=== PATIENT | male | born 1945 | race Caucasian/White ===

== ENCOUNTER 2018-05-27 13:57 | Inpatient (IN) | payer OTHER, SELFPAY ==
[2018-05-27] VITALS (11 sets, daily range): BP systolic 145–166; BP diastolic 60–90; PULSE 79–90; RESP 13–17; TEMP 36.5–39.2; O2SAT 93–100
--- NOTE | 2018-05-27 15:36 | DI.US.S_ITS ---
PROCEDURE: US ABDOMEN COMPLETE INDICATIONS: severe abdominal pain, fever, RUQ pain TECHNIQUE: Real-time scanning was performed of the abdominal and retroperitoneal organs, with image documentation. COMPARISON: None. FINDINGS: Liver: Markedly enlarged with multiple masses. There is a 6.4 cm hepatic cyst. Gallbladder: Surgically absent Biliary ducts: Obscured. Pancreas: Secured. Spleen: Spleen is normal in size and homogeneous in echotexture. Kidneys: The right kidney is normal in size and echotexture. Right kidney is partially seen and measures 13.5 cm long; left kidney is obscured. No hydronephrosis or nephrolithiasis. No solid masses. Aorta: Obscured. Iliacs: Obscured. IVC: Obscured. Miscellaneous: No free abdominal fluid. IMPRESSION: Innumerable hepatic masses consistent with metastasis. Findings would be amenable to percutaneous guided sampling. The majority of the remaining interrogated abdominal structures are obscured. Dictated by: Judson Lynch M.D. on 05/27/2018 at 17:06 Approved by: Judson Lynch M.D. on 05/27/2018 at 17:10
[2018-05-27 15:48] LABS: Add Manual Diff / Slide Review NO; Basophils Percent Auto 0.2 % (0-2); Eosinophils Percent Auto 0.1 % (2-4); Hematocrit 34.3 % (41-53); Hemoglobin 11.5 g/dL (13.5-17.5); Lymphocytes Percent Auto 9.3 % (25-40); Mean Corpuscular HGB Conc 33.4 % (30-36); Mean Corpuscular Volume 86.7 fL (80-100); Monocytes Percent Auto 7.3 % (3-14); Neutrophils Absolute Auto 6900 /uL (3000-5900); Neutrophils Percent Auto 83.1 % (50-75); Platelet Count 317 X10^3/uL (150-400); Red Blood Cell Count 3.96 X10^6/uL (4.5-5.9); Red Cell Distribution Width 15.2 % (11.6-14.8); White Blood Cell Count 8.3 X10^3/uL (4.5-11.0)
--- NOTE | 2018-05-27 15:51 | ED.ABDPAIN ---
HPI - Abdominal Pain <Cem Richard DO - Last Filed: 05/28/18 09:17> General Chief Complaint: Abdominal Pain Stated Complaint: achy all over,vomiting, sent by [facility] Time Seen by Provider: 05/27/18 15:36 Source: patient Mode of arrival: ambulatory Limitations: no limitations History of Present Illness HPI narrative: Patient presents to the emergency department today with a chief complaint feeling poorly for the past few weeks. He was sent here from his primary care office for evaluation. The patient has a history of prostate cancer and had prostatectomy in billing am in the spring. He states he has had ongoing back pain with a swollen belly and subjective fever and chills for the past few weeks. He denies any unplanned weight loss. He denies any change in bowel habits but has had nausea and vomiting. MD complaint: abdominal pain Onset (ago): week(s) Pain Consistency: constant Location: diffuse Severity: moderate Quality: cramping Radiation: none Migration to: no migration Relieving factors: nothing Exacerbating factors: nothing Associated symptoms: nausea, vomiting, fever and chills Related Data Home Medications Medication Instructions Recorded Confirmed acetaminophen [Tylenol] 1 dose PO PRN PRN 05/27/18 05/27/18 hydrocodone-acetaminophen 1 tab PO Q6H PRN MDD 8 05/27/18 05/27/18 ibuprofen 1 dose PO PRN PRN 05/27/18 05/27/18 ondansetron 4 mg PO Q8H PRN 05/27/18 05/27/18 Allergies Allergy/AdvReac Type Severity Reaction Status Date / Time No Known Drug Allergies Allergy Verified 05/27/18 15:32 Review of Systems <DO Trish Stiles Last Filed: 05/28/18 09:17> Review of Systems All systems reviewed & are unremarkable except as noted in HPI and below Constitutional Reports body ache(s), Reports chills, Reports fatigue, Reports fever(s), Denies lethargy, Reports poor appetite and Denies weakness Eyes Denies change in vision, Denies eye discharge, Denies irritation and Denies loss of vision ENT Ears, Nose, Mouth, and Throat: Denies change in voice, Denies neck pain and Denies sore throat Cardiovascular Denies chest pain, Denies irregular heart rhythm, Denies lightheadedness, Denies palpitations, Denies dyspnea, Denies dyspnea on exertion and Denies orthopnea Respiratory Denies cough, Denies dyspnea, Denies dyspnea on exertion and Denies wheezing Gastrointestinal Gastrointestinal: Reports abdominal pain, Denies change in bowel habits, Denies diarrhea, Denies nausea and Reports vomiting Genitourinary Denies hematuria, Denies flank pain, Denies urinary incontinence and Denies urinary urgency Musculoskeletal Reports back pain and Denies neck pain Integumentary/Breasts Denies pruritus, Denies erythema, Denies rash and Denies wounds Neurologic Denies confusion, Denies loss of vision and Denies weakness Psychiatric Denies anxiety, Denies confusion, Denies depression, Denies homicidal ideation and Denies suicidal ideation Endocrine Reports fatigue and Denies palpitations Hematologic/Lymphatic Denies easy bruising Allergic/Immunologic Denies wheezing Exam <Cem Richard, DO - Last Filed: 05/28/18 09:17> Narrative Exam Narrative: Pleasant 72-year-old male in mild distress Initial Vital Signs Initial Vital Signs: Vital Signs Temperature 97.7 F 05/27/18 14:00 Pulse Rate 90 05/27/18 14:00 Respiratory Rate 16 05/27/18 14:00 Blood Pressure 166/74 H 05/27/18 14:00 Pulse Oximetry 100 05/27/18 14:00 Const General: cooperative, well developed and in distress Nutritional Appearance: well nourished Orientation: alert, awake, oriented x3 and not confused [facility] Head: normocephalic and atraumatic Ears: external ears normal and TM's normal bilaterally Nose: external nose normal and No nasal discharge Face and sinus: sinuses nontender, face symmetric, no sinus tenderness and No dry mucous membranes Mouth: oral mucosae normal and moist mucous membranes Teeth and gingiva: dentition normal Throat: tonsils normal and uvula midline Eyes General: appearance normal, both eyes and all related structures Eyelids: eyelids normal Conjunctivae: conjunctivae normal Sclera: sclerae normal Pupils: PERRL EOM: EOM intact bilaterally Chest Chest: normal inspection of the chest Resp Effort & Inspection: normal respiratory effort, able to speak in complete sentences, no respiratory distress and no use of accessory muscles Auscultation: clear to auscultation bilaterally, no rales, no rhonchi and no wheezes GI Inspection: non-distended Palpation: soft, no hepatosplenomegaly, No guarding, No pulsatile mass, tender (Mild, diffuse) and ascites Auscultation: normal bowel sounds Back/Spine/Pelvis Back: No CVA tenderness Cervical Spine: cervical ROM normal and No pain with cervical ROM Thoracic/Lumbar Spine: thoracic and lumbar spine normal to inspection Other: Patient has generalized back pain in his lumbar region but no specific palpable bony point tenderness Skin General: no rashes or lesions noted, No jaundice and No petechiae Neuro General: alert, oriented x3, gait normal and no focal motor deficits Speech: speech normal <Alessio Palmer DO - Last Filed: 05/29/18 07:02> Initial Vital Signs Initial Vital Signs: Vital Signs Temperature 97.7 F 05/27/18 14:00 Pulse Rate 90 05/27/18 14:00 Respiratory Rate 16 05/27/18 14:00 Blood Pressure 166/74 H 05/27/18 14:00 Pulse Oximetry 100 05/27/18 14:00 Course <Cem Richard DO - Last Filed: 05/28/18 09:17> Orders Ordered: ED Orders 05/29/18 CT biopsy abdomen percutaneous Routine Docusate Sodium (Colace) 100 mg PO BID FRANKI Last Admin: 05/28/18 22:28 Dose: 100 mg Hydromorphone HCl (Dilaudid) 1 mg IV Q4H PRN PRN Reason: Pain, Severe (7-10) Last Admin: 05/29/18 05:30 Dose: 1 mg Non-Formulary Medication (Patient's Own Medication) 0 each PO PRN PRN PRN Reason: Agitation Oxycodone HCl (Percolone) 10 mg PO Q4HR PRN PRN Reason: Pain, Severe (7-10) Last Admin: 05/29/18 04:18 Dose: 10 mg Discontinued Medications Ceftriaxone Sodium (Rocephin) 1,000 mg IM NOW ONE Stop: 05/27/18 15:39 Last Admin: 05/27/18 16:06 Dose: Hydromorphone HCl (Dilaudid) 1 mg IV Q4H PRN PRN Reason: Pain, Severe (7-10) Sodium Chloride (Normal Saline 0.9%) 1,000 mls @ 1,000 mls/hr IV BOLUS ONE Stop: 05/27/18 16:47 Last Infusion: 05/27/18 17:25 Dose: 0 mls/hr Infusion: 05/27/18 16:55 Dose: 1,000 mls/hr Infusion: 05/27/18 16:40 Dose: 0 mls/hr Admin: 05/27/18 16:02 Dose: 1,000 mls/hr Ceftriaxone Sodium/Dextrose (Rocephin) 1 gm in 50 mls @ 100 mls/hr IV NOW ONE Stop: 05/27/18 16:34 Last Infusion: 05/27/18 16:33 Dose: 0 mls/hr Admin: 05/27/18 16:06 Dose: 100 mls/hr Sodium Chloride (Normal Saline 0.9%) 1,000 mls @ 1,000 mls/hr IV BOLUS ONE Stop: 05/27/18 18:23 Last Infusion: 05/27/18 18:50 Dose: 0 mls/hr Admin: 05/27/18 17:30 Dose: 1,000 mls/hr Sodium Chloride (Normal Saline 0.9%) 1,000 mls @ 100 mls/hr IV CONT FRANKI Last Infusion: 05/28/18 17:43 Dose: 0 mls/hr Infusion: 05/28/18 12:19 Dose: 100 mls/hr Admin: 05/28/18 06:41 Dose: 100 mls/hr Sodium Chloride (Normal Saline 0.9%) 1,000 mls @ 1,000 mls/hr IV BOLUS ONE Stop: 05/28/18 09:38 Last Infusion: 05/28/18 10:53 Dose: 0 mls/hr Admin: 05/28/18 09:19 Dose: 1,000 mls/hr Ibuprofen (Advil) 800 mg PO NOW ONE Stop: 05/28/18 06:28 Last Admin: 05/28/18 06:41 Dose: 800 mg Ketorolac Tromethamine (Toradol) 15 mg IV NOW ONE Stop: 05/27/18 15:49 Last Admin: 05/27/18 16:02 Dose: 15 mg Lorazepam (Ativan) 0.5 mg PO NOW ONE Stop: 05/28/18 01:10 Last Admin: 05/28/18 01:19 Dose: 0.5 mg Lorazepam (Ativan) 1 mg PO NOW ONE Stop: 05/28/18 06:19 Last Admin: 05/28/18 06:21 Dose: 1 mg Ondansetron HCl (Zofran) 4 mg IV NOW ONE Stop: 05/28/18 05:51 Last Admin: 05/28/18 06:02 Dose: 4 mg Oxycodone HCl (Oxycodone) 10 mg PO Q4HR PRN PRN Reason: Pain, Moderate (4-6) Oxycodone HCl (Percolone) 10 mg PO Q4HR PRN PRN Reason: Pain, Severe (7-10) Last Admin: 05/28/18 22:27 Dose: 10 mg Admin: 05/28/18 17:42 Dose: 10 mg Reevaluation(s) Reevaluation #1: Patient feeling febrile with chills, temperature re-checked and noted to be 102.5. Cultures and lactate ordered, Rocephin ordered, fluid bolus is ordered, goal of 30 milliliters/kilogram within 3 hr Time: 15:57 Reevaluation #2: temp has improved. Patient resting comfortably Reevaluation #3: Sats continue in the in mid 90s. Patient in no respiratory distress. Fever has improved. There is still no beds at [facility]. Re-contacted Dr. Reyes whom is happy to accept patient on her service Time: 09:17 Consultations Consultation #1: call to Dr. Talavera (Oncology) and review of findings. He states this sounds most likely to be from melanoma rather than prostate CA and that he has experience with impressive improvement under similar circumstances with the use of newer biologics. Call to our hospitalist to bring patient in whom recommends [facility] given access to oncology. Dr. Tavares (hospitalist) at [facility] happy to accept, but in the interim [facility] is full, but requests call back for status check in an hour. Dr. Reyes happy to accept patient on her service should bed availablity be a problem at [facility] Consultation #2: call back to [facility]. Currently no beds but they continue to work for us. They ask that we recheck at 2200 Time: 21:04 Vital Signs - 8 hr 05/29/18 01:01 05/29/18 02:08 05/29/18 04:18 Temperature 99.1 F 100.9 F H Pulse Rate 96 H Respiratory Rate 16 Blood Pressure 145/70 H Pulse Oximetry 94 94 05/29/18 04:26 05/29/18 04:28 05/29/18 05:41 Temperature 100.9 F H 100.9 F H Pulse Rate 92 H Respiratory Rate 22 Blood Pressure 158/73 H Pulse Oximetry 93 93 05/29/18 06:23 Temperature 100.4 F H Pulse Rate Respiratory Rate Blood Pressure Pulse Oximetry <Alessio Estela DO - Last Filed: 05/29/18 07:02> Orders Ordered: ED Orders 05/29/18 CT biopsy abdomen percutaneous Routine Docusate Sodium (Colace) 100 mg PO BID FRANKI Last Admin: 05/28/18 22:28 Dose: 100 mg Hydromorphone HCl (Dilaudid) 1 mg IV Q4H PRN PRN Reason: Pain, Severe (7-10) Last Admin: 05/29/18 05:30 Dose: 1 mg Non-Formulary Medication (Patient's Own Medication) 0 each PO PRN PRN PRN Reason: Agitation Oxycodone HCl (Percolone) 10 mg PO Q4HR PRN PRN Reason: Pain, Severe (7-10) Last Admin: 05/29/18 04:18 Dose: 10 mg Discontinued Medications Ceftriaxone Sodium (Rocephin) 1,000 mg IM NOW ONE Stop: 05/27/18 15:39 Last Admin: 05/27/18 16:06 Dose: Hydromorphone HCl (Dilaudid) 1 mg IV Q4H PRN PRN Reason: Pain, Severe (7-10) Sodium Chloride (Normal Saline 0.9%) 1,000 mls @ 1,000 mls/hr IV BOLUS ONE Stop: 05/27/18 16:47 Last Infusion: 05/27/18 17:25 Dose: 0 mls/hr Infusion: 05/27/18 16:55 Dose: 1,000 mls/hr Infusion: 05/27/18 16:40 Dose: 0 mls/hr Admin: 05/27/18 16:02 Dose: 1,000 mls/hr Ceftriaxone Sodium/Dextrose (Rocephin) 1 gm in 50 mls @ 100 mls/hr IV NOW ONE Stop: 05/27/18 16:34 Last Infusion: 05/27/18 16:33 Dose: 0 mls/hr Admin: 05/27/18 16:06 Dose: 100 mls/hr Sodium Chloride (Normal Saline 0.9%) 1,000 mls @ 1,000 mls/hr IV BOLUS ONE Stop: 05/27/18 18:23 Last Infusion: 05/27/18 18:50 Dose: 0 mls/hr Admin: 05/27/18 17:30 Dose: 1,000 mls/hr Sodium Chloride (Normal Saline 0.9%) 1,000 mls @ 100 mls/hr IV CONT FRANKI Last Infusion: 05/28/18 17:43 Dose: 0 mls/hr Infusion: 05/28/18 12:19 Dose: 100 mls/hr Admin: 05/28/18 06:41 Dose: 100 mls/hr Sodium Chloride (Normal Saline 0.9%) 1,000 mls @ 1,000 mls/hr IV BOLUS ONE Stop: 05/28/18 09:38 Last Infusion: 05/28/18 10:53 Dose: 0 mls/hr Admin: 05/28/18 09:19 Dose: 1,000 mls/hr Ibuprofen (Advil) 800 mg PO NOW ONE Stop: 05/28/18 06:28 Last Admin: 05/28/18 06:41 Dose: 800 mg Ketorolac Tromethamine (Toradol) 15 mg IV NOW ONE Stop: 05/27/18 15:49 Last Admin: 05/27/18 16:02 Dose: 15 mg Lorazepam (Ativan) 0.5 mg PO NOW ONE Stop: 05/28/18 01:10 Last Admin: 05/28/18 01:19 Dose: 0.5 mg Lorazepam (Ativan) 1 mg PO NOW ONE Stop: 05/28/18 06:19 Last Admin: 05/28/18 06:21 Dose: 1 mg Ondansetron HCl (Zofran) 4 mg IV NOW ONE Stop: 05/28/18 05:51 Last Admin: 05/28/18 06:02 Dose: 4 mg Oxycodone HCl (Oxycodone) 10 mg PO Q4HR PRN PRN Reason: Pain, Moderate (4-6) Oxycodone HCl (Percolone) 10 mg PO Q4HR PRN PRN Reason: Pain, Severe (7-10) Last Admin: 05/28/18 22:27 Dose: 10 mg Admin: 05/28/18 17:42 Dose: 10 mg Vital Signs - 8 hr 05/29/18 01:01 05/29/18 02:08 05/29/18 04:18 Temperature 99.1 F 100.9 F H Pulse Rate 96 H Respiratory Rate 16 Blood Pressure 145/70 H Pulse Oximetry 94 94 05/29/18 04:26 05/29/18 04:28 05/29/18 05:41 Temperature 100.9 F H 100.9 F H Pulse Rate 92 H Respiratory Rate 22 Blood Pressure 158/73 H Pulse Oximetry 93 93 05/29/18 06:23 Temperature 100.4 F H Pulse Rate Respiratory Rate Blood Pressure Pulse Oximetry MDM - Abdominal Pain <Cem Richrad DO - Last Filed: 05/28/18 09:17> Lab Data Result diagrams: 05/28/18 06:40 05/28/18 06:40 Lab Results 05/27/18 05/27/18 05/27/18 Range/Units 15:00 15:00 15:00 WBC 8.3 (4.5-11.0) X10^3/uL RBC 3.96 L (4.5-5.9) X10^6/uL Hgb 11.5 L (13.5-17.5) g/dL Hct 34.3 L (41-53) % MCV 86.7 (80-100) fL MCH 29.0 (26-34) PG MCHC 33.4 (30-36) % RDW 15.2 H (11.6-14.8) % Plt Count 317 (150-400) X10^3/uL Neut % (Auto) 83.1 H (50-75) % Lymph % (Auto) 9.3 L (25-40) % [place] % (Auto) 7.3 (3-14) % Eos % (Auto) 0.1 L (2-4) % Baso % (Auto) 0.2 (0-2) % Neut # (Auto) 6900 H (2862-5060) /uL PT (10.1-12.7) SECONDS INR (0.9-1.3) Sodium 138 (137-145) mmol/L Potassium 3.8 (3.4-5.1) mmol/L Chloride 97 L (98-107) mmol/L Carbon Dioxide 34 H (22-32) mmol/L BUN 15 (9-20) mg/dL Creatinine 0.70 (0.66-1.25) mg/dL Estimated GFR > 60.0 (>60) mL/min BUN/Creatinine Ratio 21.4 (6-22) Glucose 98 (80-110) mg/dL Lactate (0.7-2.1) mmol/L Calcium 9.8 (8.4-10.2) mg/dL Total Bilirubin 1.5 H (0.2-1.3) mg/dL Conjugated Bilirubin 0.0 (0.0-0.3) md/dL Unconjugated Bilirubin 0.8 (0.0-1.1) mg/dL AST 124 H (17-59) IU/L ALT 67 (21-72) IU/L Alkaline Phosphatase 488 H (38-126) U/L Lactate Dehydrogenase 8712 H (313-618) U/L Total Protein 6.3 (6.3-8.2) g/dL Albumin 3.4 L (3.5-5.0) g/dL Globulin 2.9 (1.7-4.1) g/dL Albumin/Globulin Ratio 1.2 (1.0-2.8) Lipase 35 (23-300) U/L Procalcitonin 0.34 (<0.5) ng/mL Urine Color Urine Appearance Urine pH (4.5-8.0) Ur Specific [place] (1.000-1.035) Urine Protein (Negative) Urine Glucose (UA) (Normal) g/dL Urine Ketones (NEGATIVE) Urine Occult Blood (Negative) Urine Nitrate (Negative) Urine Bilirubin (NEGATIVE) Urine Urobilinogen (0.2) E.U./dL Ur Leukocyte Esterase (NEGATIVE) Urine RBC (0-5/HPF) Urine WBC (0-5/HPF) Urine Bacteria (None) Ur Culture Indicated? Micro UA Comment Nasal Screen MRSA (PCR) (Negative) Acetaminophen < 10 L (10-30) ug/mL 05/27/18 05/28/18 05/28/18 Range/Units 15:00 06:40 06:40 WBC 8.1 (4.5-11.0) X10^3/uL RBC 3.51 L (4.5-5.9) X10^6/uL Hgb 10.2 L (13.5-17.5) g/dL Hct 30.3 L (41-53) % MCV 86.4 (80-100) fL MCH 29.1 (26-34) PG MCHC 33.7 (30-36) % RDW 15.0 H (11.6-14.8) % Plt Count 251 (150-400) X10^3/uL Neut % (Auto) 85.8 H (50-75) % Lymph % (Auto) 6.3 L (25-40) % [place] % (Auto) 7.2 (3-14) % Eos % (Auto) 0.0 L (2-4) % Baso % (Auto) 0.7 (0-2) % Neut # (Auto) 6900 H (7594-1361) /uL PT (10.1-12.7) SECONDS INR (0.9-1.3) Sodium 133 L (137-145) mmol/L Potassium 3.4 (3.4-5.1) mmol/L Chloride 98 (98-107) mmol/L Carbon Dioxide 29 (22-32) mmol/L BUN 14 (9-20) mg/dL Creatinine 0.50 L (0.66-1.25) mg/dL Estimated GFR > 60.0 (>60) mL/min BUN/Creatinine Ratio 28.0 H (6-22) Glucose 108 (80-110) mg/dL Lactate 1.8 (0.7-2.1) mmol/L Calcium 8.7 (8.4-10.2) mg/dL Total Bilirubin (0.2-1.3) mg/dL Conjugated Bilirubin (0.0-0.3) md/dL Unconjugated Bilirubin (0.0-1.1) mg/dL AST (17-59) IU/L ALT (21-72) IU/L Alkaline Phosphatase (38-126) U/L Lactate Dehydrogenase (313-618) U/L Total Protein (6.3-8.2) g/dL Albumin (3.5-5.0) g/dL Globulin (1.7-4.1) g/dL Albumin/Globulin Ratio (1.0-2.8) Lipase (23-300) U/L Procalcitonin (<0.5) ng/mL Urine Color Urine Appearance Urine pH (4.5-8.0) Ur Specific [place] (1.000-1.035) Urine Protein (Negative) Urine Glucose (UA) (Normal) g/dL Urine Ketones (NEGATIVE) Urine Occult Blood (Negative) Urine Nitrate (Negative) Urine Bilirubin (NEGATIVE) Urine Urobilinogen (0.2) E.U./dL Ur Leukocyte Esterase (NEGATIVE) Urine RBC (0-5/HPF) Urine WBC (0-5/HPF) Urine Bacteria (None) Ur Culture Indicated? Micro UA Comment Nasal Screen MRSA (PCR) (Negative) Acetaminophen (10-30) ug/mL 05/28/18 05/28/18 05/28/18 Range/Units 06:40 14:12 17:16 WBC (4.5-11.0) X10^3/uL RBC (4.5-5.9) X10^6/uL Hgb (13.5-17.5) g/dL Hct (41-53) % MCV (80-100) fL MCH (26-34) PG MCHC (30-36) % RDW (11.6-14.8) % Plt Count (150-400) X10^3/uL Neut % (Auto) (50-75) % Lymph % (Auto) (25-40) % [place] % (Auto) (3-14) % Eos % (Auto) (2-4) % Baso % (Auto) (0-2) % Neut # (Auto) (0232-9300) /uL PT 14.6 H (10.1-12.7) SECONDS INR 1.3 (0.9-1.3) Sodium (137-145) mmol/L Potassium (3.4-5.1) mmol/L Chloride (98-107) mmol/L Carbon Dioxide (22-32) mmol/L BUN (9-20) mg/dL Creatinine (0.66-1.25) mg/dL Estimated GFR (>60) mL/min BUN/Creatinine Ratio (6-22) Glucose (80-110) mg/dL Lactate 1.1 (0.7-2.1) mmol/L Calcium (8.4-10.2) mg/dL Total Bilirubin (0.2-1.3) mg/dL Conjugated Bilirubin (0.0-0.3) md/dL Unconjugated Bilirubin (0.0-1.1) mg/dL AST (17-59) IU/L ALT (21-72) IU/L Alkaline Phosphatase (38-126) U/L Lactate Dehydrogenase (313-618) U/L Total Protein (6.3-8.2) g/dL Albumin (3.5-5.0) g/dL Globulin (1.7-4.1) g/dL Albumin/Globulin Ratio (1.0-2.8) Lipase (23-300) U/L Procalcitonin (<0.5) ng/mL Urine Color Urine Appearance Urine pH (4.5-8.0) Ur Specific [place] (1.000-1.035) Urine Protein (Negative) Urine Glucose (UA) (Normal) g/dL Urine Ketones (NEGATIVE) Urine Occult Blood (Negative) Urine Nitrate (Negative) Urine Bilirubin (NEGATIVE) Urine Urobilinogen (0.2) E.U./dL Ur Leukocyte Esterase (NEGATIVE) Urine RBC (0-5/HPF) Urine WBC (0-5/HPF) Urine Bacteria (None) Ur Culture Indicated? Micro UA Comment Nasal Screen MRSA (PCR) Negative for mrsa (Negative) Acetaminophen (10-30) ug/mL 05/28/18 Range/Units 17:30 WBC (4.5-11.0) X10^3/uL RBC (4.5-5.9) X10^6/uL Hgb (13.5-17.5) g/dL Hct (41-53) % MCV (80-100) fL MCH (26-34) PG MCHC (30-36) % RDW (11.6-14.8) % Plt Count (150-400) X10^3/uL Neut % (Auto) (50-75) % Lymph % (Auto) (25-40) % [place] % (Auto) (3-14) % Eos % (Auto) (2-4) % Baso % (Auto) (0-2) % Neut # (Auto) (4271-3631) /uL PT (10.1-12.7) SECONDS INR (0.9-1.3) Sodium (137-145) mmol/L Potassium (3.4-5.1) mmol/L Chloride (98-107) mmol/L Carbon Dioxide (22-32) mmol/L BUN (9-20) mg/dL Creatinine (0.66-1.25) mg/dL Estimated GFR (>60) mL/min BUN/Creatinine Ratio (6-22) Glucose (80-110) mg/dL Lactate (0.7-2.1) mmol/L Calcium (8.4-10.2) mg/dL Total Bilirubin (0.2-1.3) mg/dL Conjugated Bilirubin (0.0-0.3) md/dL Unconjugated Bilirubin (0.0-1.1) mg/dL AST (17-59) IU/L ALT (21-72) IU/L Alkaline Phosphatase (38-126) U/L Lactate Dehydrogenase (313-618) U/L Total Protein (6.3-8.2) g/dL Albumin (3.5-5.0) g/dL Globulin (1.7-4.1) g/dL Albumin/Globulin Ratio (1.0-2.8) Lipase (23-300) U/L Procalcitonin (<0.5) ng/mL Urine Color Yellow Urine Appearance Clear Urine pH 5.5 (4.5-8.0) Ur Specific [place] 1.025 (1.000-1.035) Urine Protein 1+ H (Negative) Urine Glucose (UA) Negative (Normal) g/dL Urine Ketones Negative (NEGATIVE) Urine Occult Blood Negative (Negative) Urine Nitrate Negative (Negative) Urine Bilirubin Negative (NEGATIVE) Urine Urobilinogen 4.0 H (0.2) E.U./dL Ur Leukocyte Esterase Negative (NEGATIVE) Urine RBC 0-1/hpf (0-5/HPF) Urine WBC 0-1/hpf (0-5/HPF) Urine Bacteria None seen (None) Ur Culture Indicated? Not Reportable Micro UA Comment Not Reportable Nasal Screen MRSA (PCR) (Negative) Acetaminophen (10-30) ug/mL Point of care testing: Urine Dip Bedside Urine Glucose Negative Bedside Urine Bilirubin - Negative Bedside Urine Ketone - Negative Urine Specific [place] 1.020 Bedside Urine Occult Blood - Negative Bedside Urine pH 6.0 Bedside Urine Protein +/- 15 Bedside Urine Urobilinogen 1+ 2mg Bedside Urine Nitrite - Negative Bedside Urine Leukocytes - Negative Esterase <Alessio Palmer DO - Last Filed: 05/29/18 07:02> Lab Data Lab Results 05/27/18 05/27/18 05/27/18 Range/Units 15:00 15:00 15:00 WBC 8.3 (4.5-11.0) X10^3/uL RBC 3.96 L (4.5-5.9) X10^6/uL Hgb 11.5 L (13.5-17.5) g/dL Hct 34.3 L (41-53) % MCV 86.7 (80-100) fL MCH 29.0 (26-34) PG MCHC 33.4 (30-36) % RDW 15.2 H (11.6-14.8) % Plt Count 317 (150-400) X10^3/uL Neut % (Auto) 83.1 H (50-75) % Lymph % (Auto) 9.3 L (25-40) % [place] % (Auto) 7.3 (3-14) % Eos % (Auto) 0.1 L (2-4) % Baso % (Auto) 0.2 (0-2) % Neut # (Auto) 6900 H (1263-1569) /uL PT (10.1-12.7) SECONDS INR (0.9-1.3) Sodium 138 (137-145) mmol/L Potassium 3.8 (3.4-5.1) mmol/L Chloride 97 L (98-107) mmol/L Carbon Dioxide 34 H (22-32) mmol/L BUN 15 (9-20) mg/dL Creatinine 0.70 (0.66-1.25) mg/dL Estimated GFR > 60.0 (>60) mL/min BUN/Creatinine Ratio 21.4 (6-22) Glucose 98 (80-110) mg/dL Lactate (0.7-2.1) mmol/L Calcium 9.8 (8.4-10.2) mg/dL Total Bilirubin 1.5 H (0.2-1.3) mg/dL Conjugated Bilirubin 0.0 (0.0-0.3) md/dL Unconjugated Bilirubin 0.8 (0.0-1.1) mg/dL AST 124 H (17-59) IU/L ALT 67 (21-72) IU/L Alkaline Phosphatase 488 H (38-126) U/L Lactate Dehydrogenase 8712 H (313-618) U/L Total Protein 6.3 (6.3-8.2) g/dL Albumin 3.4 L (3.5-5.0) g/dL Globulin 2.9 (1.7-4.1) g/dL Albumin/Globulin Ratio 1.2 (1.0-2.8) Lipase 35 (23-300) U/L Procalcitonin 0.34 (<0.5) ng/mL Urine Color Urine Appearance Urine pH (4.5-8.0) Ur Specific [place] (1.000-1.035) Urine Protein (Negative) Urine Glucose (UA) (Normal) g/dL Urine Ketones (NEGATIVE) Urine Occult Blood (Negative) Urine Nitrate (Negative) Urine Bilirubin (NEGATIVE) Urine Urobilinogen (0.2) E.U./dL Ur Leukocyte Esterase (NEGATIVE) Urine RBC (0-5/HPF) Urine WBC (0-5/HPF) Urine Bacteria (None) Ur Culture Indicated? Micro UA Comment Nasal Screen MRSA (PCR) (Negative) Acetaminophen < 10 L (10-30) ug/mL 05/27/18 05/28/18 05/28/18 Range/Units 15:00 06:40 06:40 WBC 8.1 (4.5-11.0) X10^3/uL RBC 3.51 L (4.5-5.9) X10^6/uL Hgb 10.2 L (13.5-17.5) g/dL Hct 30.3 L (41-53) % MCV 86.4 (80-100) fL MCH 29.1 (26-34) PG MCHC 33.7 (30-36) % RDW 15.0 H (11.6-14.8) % Plt Count 251 (150-400) X10^3/uL Neut % (Auto) 85.8 H (50-75) % Lymph % (Auto) 6.3 L (25-40) % [place] % (Auto) 7.2 (3-14) % Eos % (Auto) 0.0 L (2-4) % Baso % (Auto) 0.7 (0-2) % Neut # (Auto) 6900 H (9633-7465) /uL PT (10.1-12.7) SECONDS INR (0.9-1.3) Sodium 133 L (137-145) mmol/L Potassium 3.4 (3.4-5.1) mmol/L Chloride 98 (98-107) mmol/L Carbon Dioxide 29 (22-32) mmol/L BUN 14 (9-20) mg/dL Creatinine 0.50 L (0.66-1.25) mg/dL Estimated GFR > 60.0 (>60) mL/min BUN/Creatinine Ratio 28.0 H (6-22) Glucose 108 (80-110) mg/dL Lactate 1.8 (0.7-2.1) mmol/L Calcium 8.7 (8.4-10.2) mg/dL Total Bilirubin (0.2-1.3) mg/dL Conjugated Bilirubin (0.0-0.3) md/dL Unconjugated Bilirubin (0.0-1.1) mg/dL AST (17-59) IU/L ALT (21-72) IU/L Alkaline Phosphatase (38-126) U/L Lactate Dehydrogenase (313-618) U/L Total Protein (6.3-8.2) g/dL Albumin (3.5-5.0) g/dL Globulin (1.7-4.1) g/dL Albumin/Globulin Ratio (1.0-2.8) Lipase (23-300) U/L Procalcitonin (<0.5) ng/mL Urine Color Urine Appearance Urine pH (4.5-8.0) Ur Specific [place] (1.000-1.035) Urine Protein (Negative) Urine Glucose (UA) (Normal) g/dL Urine Ketones (NEGATIVE) Urine Occult Blood (Negative) Urine Nitrate (Negative) Urine Bilirubin (NEGATIVE) Urine Urobilinogen (0.2) E.U./dL Ur Leukocyte Esterase (NEGATIVE) Urine RBC (0-5/HPF) Urine WBC (0-5/HPF) Urine Bacteria (None) Ur Culture Indicated? Micro UA Comment Nasal Screen MRSA (PCR) (Negative) Acetaminophen (10-30) ug/mL 05/28/18 05/28/18 05/28/18 Range/Units 06:40 14:12 17:16 WBC (4.5-11.0) X10^3/uL RBC (4.5-5.9) X10^6/uL Hgb (13.5-17.5) g/dL Hct (41-53) % MCV (80-100) fL MCH (26-34) PG MCHC (30-36) % RDW (11.6-14.8) % Plt Count (150-400) X10^3/uL Neut % (Auto) (50-75) % Lymph % (Auto) (25-40) % [place] % (Auto) (3-14) % Eos % (Auto) (2-4) % Baso % (Auto) (0-2) % Neut # (Auto) (2616-1909) /uL PT 14.6 H (10.1-12.7) SECONDS INR 1.3 (0.9-1.3) Sodium (137-145) mmol/L Potassium (3.4-5.1) mmol/L Chloride (98-107) mmol/L Carbon Dioxide (22-32) mmol/L BUN (9-20) mg/dL Creatinine (0.66-1.25) mg/dL Estimated GFR (>60) mL/min BUN/Creatinine Ratio (6-22) Glucose (80-110) mg/dL Lactate 1.1 (0.7-2.1) mmol/L Calcium (8.4-10.2) mg/dL Total Bilirubin (0.2-1.3) mg/dL Conjugated Bilirubin (0.0-0.3) md/dL Unconjugated Bilirubin (0.0-1.1) mg/dL AST (17-59) IU/L ALT (21-72) IU/L Alkaline Phosphatase (38-126) U/L Lactate Dehydrogenase (313-618) U/L Total Protein (6.3-8.2) g/dL Albumin (3.5-5.0) g/dL Globulin (1.7-4.1) g/dL Albumin/Globulin Ratio (1.0-2.8) Lipase (23-300) U/L Procalcitonin (<0.5) ng/mL Urine Color Urine Appearance Urine pH (4.5-8.0) Ur Specific [place] (1.000-1.035) Urine Protein (Negative) Urine Glucose (UA) (Normal) g/dL Urine Ketones (NEGATIVE) Urine Occult Blood (Negative) Urine Nitrate (Negative) Urine Bilirubin (NEGATIVE) Urine Urobilinogen (0.2) E.U./dL Ur Leukocyte Esterase (NEGATIVE) Urine RBC (0-5/HPF) Urine WBC (0-5/HPF) Urine Bacteria (None) Ur Culture Indicated? Micro UA Comment Nasal Screen MRSA (PCR) Negative for mrsa (Negative) Acetaminophen (10-30) ug/mL 05/28/18 Range/Units 17:30 WBC (4.5-11.0) X10^3/uL RBC (4.5-5.9) X10^6/uL Hgb (13.5-17.5) g/dL Hct (41-53) % MCV (80-100) fL MCH (26-34) PG MCHC (30-36) % RDW (11.6-14.8) % Plt Count (150-400) X10^3/uL Neut % (Auto) (50-75) % Lymph % (Auto) (25-40) % [place] % (Auto) (3-14) % Eos % (Auto) (2-4) % Baso % (Auto) (0-2) % Neut # (Auto) (6250-7874) /uL PT (10.1-12.7) SECONDS INR (0.9-1.3) Sodium (137-145) mmol/L Potassium (3.4-5.1) mmol/L Chloride (98-107) mmol/L Carbon Dioxide (22-32) mmol/L BUN (9-20) mg/dL Creatinine (0.66-1.25) mg/dL Estimated GFR (>60) mL/min BUN/Creatinine Ratio (6-22) Glucose (80-110) mg/dL Lactate (0.7-2.1) mmol/L Calcium (8.4-10.2) mg/dL Total Bilirubin (0.2-1.3) mg/dL Conjugated Bilirubin (0.0-0.3) md/dL Unconjugated Bilirubin (0.0-1.1) mg/dL AST (17-59) IU/L ALT (21-72) IU/L Alkaline Phosphatase (38-126) U/L Lactate Dehydrogenase (313-618) U/L Total Protein (6.3-8.2) g/dL Albumin (3.5-5.0) g/dL Globulin (1.7-4.1) g/dL Albumin/Globulin Ratio (1.0-2.8) Lipase (23-300) U/L Procalcitonin (<0.5) ng/mL Urine Color Yellow Urine Appearance Clear Urine pH 5.5 (4.5-8.0) Ur Specific [place] 1.025 (1.000-1.035) Urine Protein 1+ H (Negative) Urine Glucose (UA) Negative (Normal) g/dL Urine Ketones Negative (NEGATIVE) Urine Occult Blood Negative (Negative) Urine Nitrate Negative (Negative) Urine Bilirubin Negative (NEGATIVE) Urine Urobilinogen 4.0 H (0.2) E.U./dL Ur Leukocyte Esterase Negative (NEGATIVE) Urine RBC 0-1/hpf (0-5/HPF) Urine WBC 0-1/hpf (0-5/HPF) Urine Bacteria None seen (None) Ur Culture Indicated? Not Reportable Micro UA Comment Not Reportable Nasal Screen MRSA (PCR) (Negative) Acetaminophen (10-30) ug/mL Point of care testing: Urine Dip Bedside Urine Glucose Negative Bedside Urine Bilirubin - Negative Bedside Urine Ketone - Negative Urine Specific [place] 1.020 Bedside Urine Occult Blood - Negative Bedside Urine pH 6.0 Bedside Urine Protein +/- 15 Bedside Urine Urobilinogen 1+ 2mg Bedside Urine Nitrite - Negative Bedside Urine Leukocytes - Negative Esterase MDM Narrative Medical decision making narrative: 05/28/18: Received turned over from Dr. Richard in reviewed the patient's history and physical exam and lab reports. Patient has been stable overnight. He did receive 0.5 mg of p.o. Ativan last evening because of having problems sleeping. Multiple attempts to transfer the patient to [facility] overnight unsuccessful secondary to their bed status. We were told that there was a high possibility that they would have bed availability today. I felt that since little treatment would happen overnight that keeping the patient here in the emergency department and transferring in the morning would be a better option than admitting the patient to our hospital overnight and then doing a in patient to inpatient transfer. In the morning the patient got up to go to the bathroom. Upon returning to the bed nursing staff informed me that the patient was tachypneic and oxygen saturations were in the high 80s to low 90s on room air. I went in to evaluate the patient. He states that he did not feel short of breath. States that he felt at baseline. Was able to speak in complete sentences however did occasionally dropped to 88% on room air. He denies any chest pain. He was tachypneic. Patient stated that he became ?wore out ?while in the bathroom trying to change his diaper that he wears because of his prostate issues. He felt that his respiratory issues were because he was very fatigued from this process. Patient was also becoming more anxious about his situation. He was given another 1 mg of p.o. Ativan. He reported that the 0.5 mg that he received last evening had some affect but not when he expected. His respiratory status is definitely a change from last evening. Patient was sat up in bed. Will give him a chance to recover from walking to the bathroom and see if his tachypnea improved. It does not improve we will consider radiologic studies to evaluate him further. Patient with continued O2 sats in the high 80s. He was placed on oxygen by nasal cannula. Temperature was taken and patient was febrile. Also report from the provider's note from yesterday that the patient was also febrile yesterday. He did receive antibiotics. Repeat labs were drawn this morning. Repeat chest x-ray was ordered. Will re-evaluate after chest x-ray. Critical Care Time <Cem Richard, - Last Filed: 05/28/18 09:17> Critical Care Time: Yes Total Critical Care Time: 45 Attestation: The high probability of a clinically significant, sudden or life threatening deterioration of the [cardiovascular] system(s) required my full and direct attention, intervention and personal management. The aggregate critical care time was [45] minutes. This time is in addition to time spent performing reported procedures but includes the following: [x] Data Review and interpretation [x] Patient assessment and monitoring of vital signs [x] Documentation [x] Medication orders and management Discharge Plan Departure Patient Disposition: Admitted As Inpatient Clinical Impression: Metastatic cancer to liver, Metastatic bone cancer Discharge Date/Time: 05/28/18 12:32 Interventions: ED Discharge Assessment Last Done: 05/28/18 12:10 Admit Date/Time: 05/28/18 12:12 Admit Provider: Claudia Reyes
--- NOTE | 2018-05-27 15:55 | ED_ITS ---
HPI - Abdominal Pain <Cem Richard DO - Last Filed: 05/28/18 09:17> General Chief Complaint: Abdominal Pain Stated Complaint: achy all over,vomiting, sent by [facility] Time Seen by Provider: 05/27/18 15:36 Source: patient Mode of arrival: ambulatory Limitations: no limitations History of Present Illness HPI narrative: Patient presents to the emergency department today with a chief complaint feeling poorly for the past few weeks. He was sent here from his primary care office for evaluation. The patient has a history of prostate cancer and had prostatectomy in billing am in the spring. He states he has had ongoing back pain with a swollen belly and subjective fever and chills for the past few weeks. He denies any unplanned weight loss. He denies any change in bowel habits but has had nausea and vomiting. MD complaint: abdominal pain Onset (ago): week(s) Pain Consistency: constant Location: diffuse Severity: moderate Quality: cramping Radiation: none Migration to: no migration Relieving factors: nothing Exacerbating factors: nothing Associated symptoms: nausea, vomiting, fever and chills Related Data Home Medications Medication Instructions Recorded Confirmed acetaminophen [Tylenol] 1 dose PO PRN PRN 05/27/18 05/27/18 hydrocodone-acetaminophen 1 tab PO Q6H PRN MDD 8 05/27/18 05/27/18 ibuprofen 1 dose PO PRN PRN 05/27/18 05/27/18 ondansetron 4 mg PO Q8H PRN 05/27/18 05/27/18 Allergies Allergy/AdvReac Type Severity Reaction Status Date / Time No Known Drug Allergies Allergy Verified 05/27/18 15:32 Review of Systems <DO Trish Stiles Last Filed: 05/28/18 09:17> Review of Systems All systems reviewed & are unremarkable except as noted in HPI and below Constitutional Reports body ache(s), Reports chills, Reports fatigue, Reports fever(s), Denies lethargy, Reports poor appetite and Denies weakness Eyes Denies change in vision, Denies eye discharge, Denies irritation and Denies loss of vision ENT Ears, Nose, Mouth, and Throat: Denies change in voice, Denies neck pain and Denies sore throat Cardiovascular Denies chest pain, Denies irregular heart rhythm, Denies lightheadedness, Denies palpitations, Denies dyspnea, Denies dyspnea on exertion and Denies orthopnea Respiratory Denies cough, Denies dyspnea, Denies dyspnea on exertion and Denies wheezing Gastrointestinal Gastrointestinal: Reports abdominal pain, Denies change in bowel habits, Denies diarrhea, Denies nausea and Reports vomiting Genitourinary Denies hematuria, Denies flank pain, Denies urinary incontinence and Denies urinary urgency Musculoskeletal Reports back pain and Denies neck pain Integumentary/Breasts Denies pruritus, Denies erythema, Denies rash and Denies wounds Neurologic Denies confusion, Denies loss of vision and Denies weakness Psychiatric Denies anxiety, Denies confusion, Denies depression, Denies homicidal ideation and Denies suicidal ideation Endocrine Reports fatigue and Denies palpitations Hematologic/Lymphatic Denies easy bruising Allergic/Immunologic Denies wheezing Exam <Cem Richard, DO - Last Filed: 05/28/18 09:17> Narrative Exam Narrative: Pleasant 72-year-old male in mild distress Initial Vital Signs Initial Vital Signs: Vital Signs Temperature 97.7 F 05/27/18 14:00 Pulse Rate 90 05/27/18 14:00 Respiratory Rate 16 05/27/18 14:00 Blood Pressure 166/74 H 05/27/18 14:00 Pulse Oximetry 100 05/27/18 14:00 Const General: cooperative, well developed and in distress Nutritional Appearance: well nourished Orientation: alert, awake, oriented x3 and not confused [facility] Head: normocephalic and atraumatic Ears: external ears normal and TM's normal bilaterally Nose: external nose normal and No nasal discharge Face and sinus: sinuses nontender, face symmetric, no sinus tenderness and No dry mucous membranes Mouth: oral mucosae normal and moist mucous membranes Teeth and gingiva: dentition normal Throat: tonsils normal and uvula midline Eyes General: appearance normal, both eyes and all related structures Eyelids: eyelids normal Conjunctivae: conjunctivae normal Sclera: sclerae normal Pupils: PERRL EOM: EOM intact bilaterally Chest Chest: normal inspection of the chest Resp Effort & Inspection: normal respiratory effort, able to speak in complete sentences, no respiratory distress and no use of accessory muscles Auscultation: clear to auscultation bilaterally, no rales, no rhonchi and no wheezes GI Inspection: non-distended Palpation: soft, no hepatosplenomegaly, No guarding, No pulsatile mass, tender ( Mild, diffuse) and ascites Auscultation: normal bowel sounds Back/Spine/Pelvis Back: No CVA tenderness Cervical Spine: cervical ROM normal and No pain with cervical ROM Thoracic/Lumbar Spine: thoracic and lumbar spine normal to inspection Other: Patient has generalized back pain in his lumbar region but no specific palpable bony point tenderness Skin General: no rashes or lesions noted, No jaundice and No petechiae Neuro General: alert, oriented x3, gait normal and no focal motor deficits Speech: speech normal <Alessio Palmer DO - Last Filed: 05/29/18 07:02> Initial Vital Signs Initial Vital Signs: Vital Signs Temperature 97.7 F 05/27/18 14:00 Pulse Rate 90 05/27/18 14:00 Respiratory Rate 16 05/27/18 14:00 Blood Pressure 166/74 H 05/27/18 14:00 Pulse Oximetry 100 05/27/18 14:00 Course <Cem Richard DO - Last Filed: 05/28/18 09:17> Orders Ordered: ED Orders 05/29/18 CT biopsy abdomen percutaneous Routine Docusate Sodium (Colace) 100 mg PO BID FRANKI Last Admin: 05/28/18 22:28 Dose: 100 mg Hydromorphone HCl (Dilaudid) 1 mg IV Q4H PRN PRN Reason: Pain, Severe (7-10) Last Admin: 05/29/18 05:30 Dose: 1 mg Non-Formulary Medication (Patient's Own Medication) 0 each PO PRN PRN PRN Reason: Agitation Oxycodone HCl (Percolone) 10 mg PO Q4HR PRN PRN Reason: Pain, Severe (7-10) Last Admin: 05/29/18 04:18 Dose: 10 mg Discontinued Medications Ceftriaxone Sodium (Rocephin) 1,000 mg IM NOW ONE Stop: 05/27/18 15:39 Last Admin: 05/27/18 16:06 Dose: Hydromorphone HCl (Dilaudid) 1 mg IV Q4H PRN PRN Reason: Pain, Severe (7-10) Sodium Chloride (Normal Saline 0.9%) 1,000 mls @ 1,000 mls/hr IV BOLUS ONE Stop: 05/27/18 16:47 Last Infusion: 05/27/18 17:25 Dose: 0 mls/hr Infusion: 05/27/18 16:55 Dose: 1,000 mls/hr Infusion: 05/27/18 16:40 Dose: 0 mls/hr Admin: 05/27/18 16:02 Dose: 1,000 mls/hr Ceftriaxone Sodium/Dextrose (Rocephin) 1 gm in 50 mls @ 100 mls/hr IV NOW ONE Stop: 05/27/18 16:34 Last Infusion: 05/27/18 16:33 Dose: 0 mls/hr Admin: 05/27/18 16:06 Dose: 100 mls/hr Sodium Chloride (Normal Saline 0.9%) 1,000 mls @ 1,000 mls/hr IV BOLUS ONE Stop: 05/27/18 18:23 Last Infusion: 05/27/18 18:50 Dose: 0 mls/hr Admin: 05/27/18 17:30 Dose: 1,000 mls/hr Sodium Chloride (Normal Saline 0.9%) 1,000 mls @ 100 mls/hr IV CONT FRANKI Last Infusion: 05/28/18 17:43 Dose: 0 mls/hr Infusion: 05/28/18 12:19 Dose: 100 mls/hr Admin: 05/28/18 06:41 Dose: 100 mls/hr Sodium Chloride (Normal Saline 0.9%) 1,000 mls @ 1,000 mls/hr IV BOLUS ONE Stop: 05/28/18 09:38 Last Infusion: 05/28/18 10:53 Dose: 0 mls/hr Admin: 05/28/18 09:19 Dose: 1,000 mls/hr Ibuprofen (Advil) 800 mg PO NOW ONE Stop: 05/28/18 06:28 Last Admin: 05/28/18 06:41 Dose: 800 mg Ketorolac Tromethamine (Toradol) 15 mg IV NOW ONE Stop: 05/27/18 15:49 Last Admin: 05/27/18 16:02 Dose: 15 mg Lorazepam (Ativan) 0.5 mg PO NOW ONE Stop: 05/28/18 01:10 Last Admin: 05/28/18 01:19 Dose: 0.5 mg Lorazepam (Ativan) 1 mg PO NOW ONE Stop: 05/28/18 06:19 Last Admin: 05/28/18 06:21 Dose: 1 mg Ondansetron HCl (Zofran) 4 mg IV NOW ONE Stop: 05/28/18 05:51 Last Admin: 05/28/18 06:02 Dose: 4 mg Oxycodone HCl (Oxycodone) 10 mg PO Q4HR PRN PRN Reason: Pain, Moderate (4-6) Oxycodone HCl (Percolone) 10 mg PO Q4HR PRN PRN Reason: Pain, Severe (7-10) Last Admin: 05/28/18 22:27 Dose: 10 mg Admin: 05/28/18 17:42 Dose: 10 mg Reevaluation(s) Reevaluation #1: Patient feeling febrile with chills, temperature re-checked and noted to be 102.5. Cultures and lactate ordered, Rocephin ordered, fluid bolus is ordered, goal of 30 milliliters/kilogram within 3 hr Time: 15:57 Reevaluation #2: temp has improved. Patient resting comfortably Reevaluation #3: Sats continue in the in mid 90s. Patient in no respiratory distress. Fever has improved. There is still no beds at [facility]. Re-contacted Dr. Reyes whom is happy to accept patient on her service Time: 09:17 Consultations Consultation #1: call to Dr. Talavera (Oncology) and review of findings. He states this sounds most likely to be from melanoma rather than prostate CA and that he has experience with impressive improvement under similar circumstances with the use of newer biologics. Call to our hospitalist to bring patient in whom recommends [facility] given access to oncology. Dr. Tavares (hospitalist) at [facility] happy to accept, but in the interim [facility] is full, but requests call back for status check in an hour. Dr. Reyes happy to accept patient on her service should bed availablity be a problem at [facility] Consultation #2: call back to [facility]. Currently no beds but they continue to work for us. They ask that we recheck at 2200 Time: 21:04 Vital Signs - 8 hr 05/29/18 01:01 05/29/18 02:08 05/29/18 04:18 Temperature 99.1 F 100.9 F H Pulse Rate 96 H Respiratory Rate 16 Blood Pressure 145/70 H Pulse Oximetry 94 94 05/29/18 04:26 05/29/18 04:28 05/29/18 05:41 Temperature 100.9 F H 100.9 F H Pulse Rate 92 H Respiratory Rate 22 Blood Pressure 158/73 H Pulse Oximetry 93 93 05/29/18 06:23 Temperature 100.4 F H Pulse Rate Respiratory Rate Blood Pressure Pulse Oximetry <Alessio Estela DO - Last Filed: 05/29/18 07:02> Orders Ordered: ED Orders 05/29/18 CT biopsy abdomen percutaneous Routine Docusate Sodium (Colace) 100 mg PO BID FRANKI Last Admin: 05/28/18 22:28 Dose: 100 mg Hydromorphone HCl (Dilaudid) 1 mg IV Q4H PRN PRN Reason: Pain, Severe (7-10) Last Admin: 05/29/18 05:30 Dose: 1 mg Non-Formulary Medication (Patient's Own Medication) 0 each PO PRN PRN PRN Reason: Agitation Oxycodone HCl (Percolone) 10 mg PO Q4HR PRN PRN Reason: Pain, Severe (7-10) Last Admin: 05/29/18 04:18 Dose: 10 mg Discontinued Medications Ceftriaxone Sodium (Rocephin) 1,000 mg IM NOW ONE Stop: 05/27/18 15:39 Last Admin: 05/27/18 16:06 Dose: Hydromorphone HCl (Dilaudid) 1 mg IV Q4H PRN PRN Reason: Pain, Severe (7-10) Sodium Chloride (Normal Saline 0.9%) 1,000 mls @ 1,000 mls/hr IV BOLUS ONE Stop: 05/27/18 16:47 Last Infusion: 05/27/18 17:25 Dose: 0 mls/hr Infusion: 05/27/18 16:55 Dose: 1,000 mls/hr Infusion: 05/27/18 16:40 Dose: 0 mls/hr Admin: 05/27/18 16:02 Dose: 1,000 mls/hr Ceftriaxone Sodium/Dextrose (Rocephin) 1 gm in 50 mls @ 100 mls/hr IV NOW ONE Stop: 05/27/18 16:34 Last Infusion: 05/27/18 16:33 Dose: 0 mls/hr Admin: 05/27/18 16:06 Dose: 100 mls/hr Sodium Chloride (Normal Saline 0.9%) 1,000 mls @ 1,000 mls/hr IV BOLUS ONE Stop: 05/27/18 18:23 Last Infusion: 05/27/18 18:50 Dose: 0 mls/hr Admin: 05/27/18 17:30 Dose: 1,000 mls/hr Sodium Chloride (Normal Saline 0.9%) 1,000 mls @ 100 mls/hr IV CONT FRANKI Last Infusion: 05/28/18 17:43 Dose: 0 mls/hr Infusion: 05/28/18 12:19 Dose: 100 mls/hr Admin: 05/28/18 06:41 Dose: 100 mls/hr Sodium Chloride (Normal Saline 0.9%) 1,000 mls @ 1,000 mls/hr IV BOLUS ONE Stop: 05/28/18 09:38 Last Infusion: 05/28/18 10:53 Dose: 0 mls/hr Admin: 05/28/18 09:19 Dose: 1,000 mls/hr Ibuprofen (Advil) 800 mg PO NOW ONE Stop: 05/28/18 06:28 Last Admin: 05/28/18 06:41 Dose: 800 mg Ketorolac Tromethamine (Toradol) 15 mg IV NOW ONE Stop: 05/27/18 15:49 Last Admin: 05/27/18 16:02 Dose: 15 mg Lorazepam (Ativan) 0.5 mg PO NOW ONE Stop: 05/28/18 01:10 Last Admin: 05/28/18 01:19 Dose: 0.5 mg Lorazepam (Ativan) 1 mg PO NOW ONE Stop: 05/28/18 06:19 Last Admin: 05/28/18 06:21 Dose: 1 mg Ondansetron HCl (Zofran) 4 mg IV NOW ONE Stop: 05/28/18 05:51 Last Admin: 05/28/18 06:02 Dose: 4 mg Oxycodone HCl (Oxycodone) 10 mg PO Q4HR PRN PRN Reason: Pain, Moderate (4-6) Oxycodone HCl (Percolone) 10 mg PO Q4HR PRN PRN Reason: Pain, Severe (7-10) Last Admin: 05/28/18 22:27 Dose: 10 mg Admin: 05/28/18 17:42 Dose: 10 mg Vital Signs - 8 hr 05/29/18 01:01 05/29/18 02:08 05/29/18 04:18 Temperature 99.1 F 100.9 F H Pulse Rate 96 H Respiratory Rate 16 Blood Pressure 145/70 H Pulse Oximetry 94 94 05/29/18 04:26 05/29/18 04:28 05/29/18 05:41 Temperature 100.9 F H 100.9 F H Pulse Rate 92 H Respiratory Rate 22 Blood Pressure 158/73 H Pulse Oximetry 93 93 05/29/18 06:23 Temperature 100.4 F H Pulse Rate Respiratory Rate Blood Pressure Pulse Oximetry MDM - Abdominal Pain <Cem Richard DO - Last Filed: 05/28/18 09:17> Lab Data Result diagrams: 05/28/18 06:40 05/28/18 06:40 Lab Results 05/27/18 05/27/18 05/27/18 Range/Units 15:00 15:00 15:00 WBC 8.3 (4.5-11.0) X10^3/uL RBC 3.96 L (4.5-5.9) X10^6/uL Hgb 11.5 L (13.5-17.5) g/dL Hct 34.3 L (41-53) % MCV 86.7 (80-100) fL MCH 29.0 (26-34) PG MCHC 33.4 (30-36) % RDW 15.2 H (11.6-14.8) % Plt Count 317 (150-400) X10^3/uL Neut % (Auto) 83.1 H (50-75) % Lymph % (Auto) 9.3 L (25-40) % [place] % (Auto) 7.3 (3-14) % Eos % (Auto) 0.1 L (2-4) % Baso % (Auto) 0.2 (0-2) % Neut # (Auto) 6900 H (9823-7628) /uL PT (10.1-12.7) SECONDS INR (0.9-1.3) Sodium 138 (137-145) mmol/L Potassium 3.8 (3.4-5.1) mmol/L Chloride 97 L (98-107) mmol/L Carbon Dioxide 34 H (22-32) mmol/L BUN 15 (9-20) mg/dL Creatinine 0.70 (0.66-1.25) mg/dL Estimated GFR > 60.0 (>60) mL/min BUN/Creatinine Ratio 21.4 (6-22) Glucose 98 (80-110) mg/dL Lactate (0.7-2.1) mmol/L Calcium 9.8 (8.4-10.2) mg/dL Total Bilirubin 1.5 H (0.2-1.3) mg/dL Conjugated Bilirubin 0.0 (0.0-0.3) md/dL Unconjugated Bilirubin 0.8 (0.0-1.1) mg/dL AST 124 H (17-59) IU/L ALT 67 (21-72) IU/L Alkaline Phosphatase 488 H (38-126) U/L Lactate Dehydrogenase 8712 H (313-618) U/L Total Protein 6.3 (6.3-8.2) g/dL Albumin 3.4 L (3.5-5.0) g/dL Globulin 2.9 (1.7-4.1) g/dL Albumin/Globulin Ratio 1.2 (1.0-2.8) Lipase 35 (23-300) U/L Procalcitonin 0.34 (<0.5) ng/mL Urine Color Urine Appearance Urine pH (4.5-8.0) Ur Specific [place] (1.000-1.035) Urine Protein (Negative) Urine Glucose (UA) (Normal) g/dL Urine Ketones (NEGATIVE) Urine Occult Blood (Negative) Urine Nitrate (Negative) Urine Bilirubin (NEGATIVE) Urine Urobilinogen (0.2) E.U./dL Ur Leukocyte Esterase (NEGATIVE) Urine RBC (0-5/HPF) Urine WBC (0-5/HPF) Urine Bacteria (None) Ur Culture Indicated? Micro UA Comment Nasal Screen MRSA (PCR) (Negative) Acetaminophen < 10 L (10-30) ug/mL 05/27/18 05/28/18 05/28/18 Range/Units 15:00 06:40 06:40 WBC 8.1 (4.5-11.0) X10^3/uL RBC 3.51 L (4.5-5.9) X10^6/uL Hgb 10.2 L (13.5-17.5) g/dL Hct 30.3 L (41-53) % MCV 86.4 (80-100) fL MCH 29.1 (26-34) PG MCHC 33.7 (30-36) % RDW 15.0 H (11.6-14.8) % Plt Count 251 (150-400) X10^3/uL Neut % (Auto) 85.8 H (50-75) % Lymph % (Auto) 6.3 L (25-40) % [place] % (Auto) 7.2 (3-14) % Eos % (Auto) 0.0 L (2-4) % Baso % (Auto) 0.7 (0-2) % Neut # (Auto) 6900 H (9095-7142) /uL PT (10.1-12.7) SECONDS INR (0.9-1.3) Sodium 133 L (137-145) mmol/L Potassium 3.4 (3.4-5.1) mmol/L Chloride 98 (98-107) mmol/L Carbon Dioxide 29 (22-32) mmol/L BUN 14 (9-20) mg/dL Creatinine 0.50 L (0.66-1.25) mg/dL Estimated GFR > 60.0 (>60) mL/min BUN/Creatinine Ratio 28.0 H (6-22) Glucose 108 (80-110) mg/dL Lactate 1.8 (0.7-2.1) mmol/L Calcium 8.7 (8.4-10.2) mg/dL Total Bilirubin (0.2-1.3) mg/dL Conjugated Bilirubin (0.0-0.3) md/dL Unconjugated Bilirubin (0.0-1.1) mg/dL AST (17-59) IU/L ALT (21-72) IU/L Alkaline Phosphatase (38-126) U/L Lactate Dehydrogenase (313-618) U/L Total Protein (6.3-8.2) g/dL Albumin (3.5-5.0) g/dL Globulin (1.7-4.1) g/dL Albumin/Globulin Ratio (1.0-2.8) Lipase (23-300) U/L Procalcitonin (<0.5) ng/mL Urine Color Urine Appearance Urine pH (4.5-8.0) Ur Specific [place] (1.000-1.035) Urine Protein (Negative) Urine Glucose (UA) (Normal) g/dL Urine Ketones (NEGATIVE) Urine Occult Blood (Negative) Urine Nitrate (Negative) Urine Bilirubin (NEGATIVE) Urine Urobilinogen (0.2) E.U./dL Ur Leukocyte Esterase (NEGATIVE) Urine RBC (0-5/HPF) Urine WBC (0-5/HPF) Urine Bacteria (None) Ur Culture Indicated? Micro UA Comment Nasal Screen MRSA (PCR) (Negative) Acetaminophen (10-30) ug/mL 05/28/18 05/28/18 05/28/18 Range/Units 06:40 14:12 17:16 WBC (4.5-11.0) X10^3/uL RBC (4.5-5.9) X10^6/uL Hgb (13.5-17.5) g/dL Hct (41-53) % MCV (80-100) fL MCH (26-34) PG MCHC (30-36) % RDW (11.6-14.8) % Plt Count (150-400) X10^3/uL Neut % (Auto) (50-75) % Lymph % (Auto) (25-40) % [place] % (Auto) (3-14) % Eos % (Auto) (2-4) % Baso % (Auto) (0-2) % Neut # (Auto) (2483-5350) /uL PT 14.6 H (10.1-12.7) SECONDS INR 1.3 (0.9-1.3) Sodium (137-145) mmol/L Potassium (3.4-5.1) mmol/L Chloride (98-107) mmol/L Carbon Dioxide (22-32) mmol/L BUN (9-20) mg/dL Creatinine (0.66-1.25) mg/dL Estimated GFR (>60) mL/min BUN/Creatinine Ratio (6-22) Glucose (80-110) mg/dL Lactate 1.1 (0.7-2.1) mmol/L Calcium (8.4-10.2) mg/dL Total Bilirubin (0.2-1.3) mg/dL Conjugated Bilirubin (0.0-0.3) md/dL Unconjugated Bilirubin (0.0-1.1) mg/dL AST (17-59) IU/L ALT (21-72) IU/L Alkaline Phosphatase (38-126) U/L Lactate Dehydrogenase (313-618) U/L Total Protein (6.3-8.2) g/dL Albumin (3.5-5.0) g/dL Globulin (1.7-4.1) g/dL Albumin/Globulin Ratio (1.0-2.8) Lipase (23-300) U/L Procalcitonin (<0.5) ng/mL Urine Color Urine Appearance Urine pH (4.5-8.0) Ur Specific [place] (1.000-1.035) Urine Protein (Negative) Urine Glucose (UA) (Normal) g/dL Urine Ketones (NEGATIVE) Urine Occult Blood (Negative) Urine Nitrate (Negative) Urine Bilirubin (NEGATIVE) Urine Urobilinogen (0.2) E.U./dL Ur Leukocyte Esterase (NEGATIVE) Urine RBC (0-5/HPF) Urine WBC (0-5/HPF) Urine Bacteria (None) Ur Culture Indicated? Micro UA Comment Nasal Screen MRSA (PCR) Negative for mrsa (Negative) Acetaminophen (10-30) ug/mL 05/28/18 Range/Units 17:30 WBC (4.5-11.0) X10^3/uL RBC (4.5-5.9) X10^6/uL Hgb (13.5-17.5) g/dL Hct (41-53) % MCV (80-100) fL MCH (26-34) PG MCHC (30-36) % RDW (11.6-14.8) % Plt Count (150-400) X10^3/uL Neut % (Auto) (50-75) % Lymph % (Auto) (25-40) % [place] % (Auto) (3-14) % Eos % (Auto) (2-4) % Baso % (Auto) (0-2) % Neut # (Auto) (0667-0952) /uL PT (10.1-12.7) SECONDS INR (0.9-1.3) Sodium (137-145) mmol/L Potassium (3.4-5.1) mmol/L Chloride (98-107) mmol/L Carbon Dioxide (22-32) mmol/L BUN (9-20) mg/dL Creatinine (0.66-1.25) mg/dL Estimated GFR (>60) mL/min BUN/Creatinine Ratio (6-22) Glucose (80-110) mg/dL Lactate (0.7-2.1) mmol/L Calcium (8.4-10.2) mg/dL Total Bilirubin (0.2-1.3) mg/dL Conjugated Bilirubin (0.0-0.3) md/dL Unconjugated Bilirubin (0.0-1.1) mg/dL AST (17-59) IU/L ALT (21-72) IU/L Alkaline Phosphatase (38-126) U/L Lactate Dehydrogenase (313-618) U/L Total Protein (6.3-8.2) g/dL Albumin (3.5-5.0) g/dL Globulin (1.7-4.1) g/dL Albumin/Globulin Ratio (1.0-2.8) Lipase (23-300) U/L Procalcitonin (<0.5) ng/mL Urine Color Yellow Urine Appearance Clear Urine pH 5.5 (4.5-8.0) Ur Specific [place] 1.025 (1.000-1.035) Urine Protein 1+ H (Negative) Urine Glucose (UA) Negative (Normal) g/dL Urine Ketones Negative (NEGATIVE) Urine Occult Blood Negative (Negative) Urine Nitrate Negative (Negative) Urine Bilirubin Negative (NEGATIVE) Urine Urobilinogen 4.0 H (0.2) E.U./dL Ur Leukocyte Esterase Negative (NEGATIVE) Urine RBC 0-1/hpf (0-5/HPF) Urine WBC 0-1/hpf (0-5/HPF) Urine Bacteria None seen (None) Ur Culture Indicated? Not Reportable Micro UA Comment Not Reportable Nasal Screen MRSA (PCR) (Negative) Acetaminophen (10-30) ug/mL Point of care testing: Urine Dip Bedside Urine Glucose Negative Bedside Urine Bilirubin - Negative Bedside Urine Ketone - Negative Urine Specific [place] 1.020 Bedside Urine Occult Blood - Negative Bedside Urine pH 6.0 Bedside Urine Protein +/- 15 Bedside Urine Urobilinogen 1+ 2mg Bedside Urine Nitrite - Negative Bedside Urine Leukocytes - Negative Esterase <Alessio Palmer DO - Last Filed: 05/29/18 07:02> Lab Data Lab Results 05/27/18 05/27/18 05/27/18 Range/Units 15:00 15:00 15:00 WBC 8.3 (4.5-11.0) X10^3/uL RBC 3.96 L (4.5-5.9) X10^6/uL Hgb 11.5 L (13.5-17.5) g/dL Hct 34.3 L (41-53) % MCV 86.7 (80-100) fL MCH 29.0 (26-34) PG MCHC 33.4 (30-36) % RDW 15.2 H (11.6-14.8) % Plt Count 317 (150-400) X10^3/uL Neut % (Auto) 83.1 H (50-75) % Lymph % (Auto) 9.3 L (25-40) % [place] % (Auto) 7.3 (3-14) % Eos % (Auto) 0.1 L (2-4) % Baso % (Auto) 0.2 (0-2) % Neut # (Auto) 6900 H (1120-1104) /uL PT (10.1-12.7) SECONDS INR (0.9-1.3) Sodium 138 (137-145) mmol/L Potassium 3.8 (3.4-5.1) mmol/L Chloride 97 L (98-107) mmol/L Carbon Dioxide 34 H (22-32) mmol/L BUN 15 (9-20) mg/dL Creatinine 0.70 (0.66-1.25) mg/dL Estimated GFR > 60.0 (>60) mL/min BUN/Creatinine Ratio 21.4 (6-22) Glucose 98 (80-110) mg/dL Lactate (0.7-2.1) mmol/L Calcium 9.8 (8.4-10.2) mg/dL Total Bilirubin 1.5 H (0.2-1.3) mg/dL Conjugated Bilirubin 0.0 (0.0-0.3) md/dL Unconjugated Bilirubin 0.8 (0.0-1.1) mg/dL AST 124 H (17-59) IU/L ALT 67 (21-72) IU/L Alkaline Phosphatase 488 H (38-126) U/L Lactate Dehydrogenase 8712 H (313-618) U/L Total Protein 6.3 (6.3-8.2) g/dL Albumin 3.4 L (3.5-5.0) g/dL Globulin 2.9 (1.7-4.1) g/dL Albumin/Globulin Ratio 1.2 (1.0-2.8) Lipase 35 (23-300) U/L Procalcitonin 0.34 (<0.5) ng/mL Urine Color Urine Appearance Urine pH (4.5-8.0) Ur Specific [place] (1.000-1.035) Urine Protein (Negative) Urine Glucose (UA) (Normal) g/dL Urine Ketones (NEGATIVE) Urine Occult Blood (Negative) Urine Nitrate (Negative) Urine Bilirubin (NEGATIVE) Urine Urobilinogen (0.2) E.U./dL Ur Leukocyte Esterase (NEGATIVE) Urine RBC (0-5/HPF) Urine WBC (0-5/HPF) Urine Bacteria (None) Ur Culture Indicated? Micro UA Comment Nasal Screen MRSA (PCR) (Negative) Acetaminophen < 10 L (10-30) ug/mL 05/27/18 05/28/18 05/28/18 Range/Units 15:00 06:40 06:40 WBC 8.1 (4.5-11.0) X10^3/uL RBC 3.51 L (4.5-5.9) X10^6/uL Hgb 10.2 L (13.5-17.5) g/dL Hct 30.3 L (41-53) % MCV 86.4 (80-100) fL MCH 29.1 (26-34) PG MCHC 33.7 (30-36) % RDW 15.0 H (11.6-14.8) % Plt Count 251 (150-400) X10^3/uL Neut % (Auto) 85.8 H (50-75) % Lymph % (Auto) 6.3 L (25-40) % [place] % (Auto) 7.2 (3-14) % Eos % (Auto) 0.0 L (2-4) % Baso % (Auto) 0.7 (0-2) % Neut # (Auto) 6900 H (3732-0090) /uL PT (10.1-12.7) SECONDS INR (0.9-1.3) Sodium 133 L (137-145) mmol/L Potassium 3.4 (3.4-5.1) mmol/L Chloride 98 (98-107) mmol/L Carbon Dioxide 29 (22-32) mmol/L BUN 14 (9-20) mg/dL Creatinine 0.50 L (0.66-1.25) mg/dL Estimated GFR > 60.0 (>60) mL/min BUN/Creatinine Ratio 28.0 H (6-22) Glucose 108 (80-110) mg/dL Lactate 1.8 (0.7-2.1) mmol/L Calcium 8.7 (8.4-10.2) mg/dL Total Bilirubin (0.2-1.3) mg/dL Conjugated Bilirubin (0.0-0.3) md/dL Unconjugated Bilirubin (0.0-1.1) mg/dL AST (17-59) IU/L ALT (21-72) IU/L Alkaline Phosphatase (38-126) U/L Lactate Dehydrogenase (313-618) U/L Total Protein (6.3-8.2) g/dL Albumin (3.5-5.0) g/dL Globulin (1.7-4.1) g/dL Albumin/Globulin Ratio (1.0-2.8) Lipase (23-300) U/L Procalcitonin (<0.5) ng/mL Urine Color Urine Appearance Urine pH (4.5-8.0) Ur Specific [place] (1.000-1.035) Urine Protein (Negative) Urine Glucose (UA) (Normal) g/dL Urine Ketones (NEGATIVE) Urine Occult Blood (Negative) Urine Nitrate (Negative) Urine Bilirubin (NEGATIVE) Urine Urobilinogen (0.2) E.U./dL Ur Leukocyte Esterase (NEGATIVE) Urine RBC (0-5/HPF) Urine WBC (0-5/HPF) Urine Bacteria (None) Ur Culture Indicated? Micro UA Comment Nasal Screen MRSA (PCR) (Negative) Acetaminophen (10-30) ug/mL 05/28/18 05/28/18 05/28/18 Range/Units 06:40 14:12 17:16 WBC (4.5-11.0) X10^3/uL RBC (4.5-5.9) X10^6/uL Hgb (13.5-17.5) g/dL Hct (41-53) % MCV (80-100) fL MCH (26-34) PG MCHC (30-36) % RDW (11.6-14.8) % Plt Count (150-400) X10^3/uL Neut % (Auto) (50-75) % Lymph % (Auto) (25-40) % [place] % (Auto) (3-14) % Eos % (Auto) (2-4) % Baso % (Auto) (0-2) % Neut # (Auto) (7931-5194) /uL PT 14.6 H (10.1-12.7) SECONDS INR 1.3 (0.9-1.3) Sodium (137-145) mmol/L Potassium (3.4-5.1) mmol/L Chloride (98-107) mmol/L Carbon Dioxide (22-32) mmol/L BUN (9-20) mg/dL Creatinine (0.66-1.25) mg/dL Estimated GFR (>60) mL/min BUN/Creatinine Ratio (6-22) Glucose (80-110) mg/dL Lactate 1.1 (0.7-2.1) mmol/L Calcium (8.4-10.2) mg/dL Total Bilirubin (0.2-1.3) mg/dL Conjugated Bilirubin (0.0-0.3) md/dL Unconjugated Bilirubin (0.0-1.1) mg/dL AST (17-59) IU/L ALT (21-72) IU/L Alkaline Phosphatase (38-126) U/L Lactate Dehydrogenase (313-618) U/L Total Protein (6.3-8.2) g/dL Albumin (3.5-5.0) g/dL Globulin (1.7-4.1) g/dL Albumin/Globulin Ratio (1.0-2.8) Lipase (23-300) U/L Procalcitonin (<0.5) ng/mL Urine Color Urine Appearance Urine pH (4.5-8.0) Ur Specific [place] (1.000-1.035) Urine Protein (Negative) Urine Glucose (UA) (Normal) g/dL Urine Ketones (NEGATIVE) Urine Occult Blood (Negative) Urine Nitrate (Negative) Urine Bilirubin (NEGATIVE) Urine Urobilinogen (0.2) E.U./dL Ur Leukocyte Esterase (NEGATIVE) Urine RBC (0-5/HPF) Urine WBC (0-5/HPF) Urine Bacteria (None) Ur Culture Indicated? Micro UA Comment Nasal Screen MRSA (PCR) Negative for mrsa (Negative) Acetaminophen (10-30) ug/mL 05/28/18 Range/Units 17:30 WBC (4.5-11.0) X10^3/uL RBC (4.5-5.9) X10^6/uL Hgb (13.5-17.5) g/dL Hct (41-53) % MCV (80-100) fL MCH (26-34) PG MCHC (30-36) % RDW (11.6-14.8) % Plt Count (150-400) X10^3/uL Neut % (Auto) (50-75) % Lymph % (Auto) (25-40) % [place] % (Auto) (3-14) % Eos % (Auto) (2-4) % Baso % (Auto) (0-2) % Neut # (Auto) (3581-9267) /uL PT (10.1-12.7) SECONDS INR (0.9-1.3) Sodium (137-145) mmol/L Potassium (3.4-5.1) mmol/L Chloride (98-107) mmol/L Carbon Dioxide (22-32) mmol/L BUN (9-20) mg/dL Creatinine (0.66-1.25) mg/dL Estimated GFR (>60) mL/min BUN/Creatinine Ratio (6-22) Glucose (80-110) mg/dL Lactate (0.7-2.1) mmol/L Calcium (8.4-10.2) mg/dL Total Bilirubin (0.2-1.3) mg/dL Conjugated Bilirubin (0.0-0.3) md/dL Unconjugated Bilirubin (0.0-1.1) mg/dL AST (17-59) IU/L ALT (21-72) IU/L Alkaline Phosphatase (38-126) U/L Lactate Dehydrogenase (313-618) U/L Total Protein (6.3-8.2) g/dL Albumin (3.5-5.0) g/dL Globulin (1.7-4.1) g/dL Albumin/Globulin Ratio (1.0-2.8) Lipase (23-300) U/L Procalcitonin (<0.5) ng/mL Urine Color Yellow Urine Appearance Clear Urine pH 5.5 (4.5-8.0) Ur Specific [place] 1.025 (1.000-1.035) Urine Protein 1+ H (Negative) Urine Glucose (UA) Negative (Normal) g/dL Urine Ketones Negative (NEGATIVE) Urine Occult Blood Negative (Negative) Urine Nitrate Negative (Negative) Urine Bilirubin Negative (NEGATIVE) Urine Urobilinogen 4.0 H (0.2) E.U./dL Ur Leukocyte Esterase Negative (NEGATIVE) Urine RBC 0-1/hpf (0-5/HPF) Urine WBC 0-1/hpf (0-5/HPF) Urine Bacteria None seen (None) Ur Culture Indicated? Not Reportable Micro UA Comment Not Reportable Nasal Screen MRSA (PCR) (Negative) Acetaminophen (10-30) ug/mL Point of care testing: Urine Dip Bedside Urine Glucose Negative Bedside Urine Bilirubin - Negative Bedside Urine Ketone - Negative Urine Specific [place] 1.020 Bedside Urine Occult Blood - Negative Bedside Urine pH 6.0 Bedside Urine Protein +/- 15 Bedside Urine Urobilinogen 1+ 2mg Bedside Urine Nitrite - Negative Bedside Urine Leukocytes - Negative Esterase MDM Narrative Medical decision making narrative: 05/28/18: Received turned over from Dr. Richard in reviewed the patient's history and physical exam and lab reports. Patient has been stable overnight. He did receive 0.5 mg of p.o. Ativan last evening because of having problems sleeping. Multiple attempts to transfer the patient to [facility] overnight unsuccessful secondary to their bed status. We were told that there was a high possibility that they would have bed availability today. I felt that since little treatment would happen overnight that keeping the patient here in the emergency department and transferring in the morning would be a better option than admitting the patient to our hospital overnight and then doing a in patient to inpatient transfer. In the morning the patient got up to go to the bathroom. Upon returning to the bed nursing staff informed me that the patient was tachypneic and oxygen saturations were in the high 80s to low 90s on room air. I went in to evaluate the patient. He states that he did not feel short of breath. States that he felt at baseline. Was able to speak in complete sentences however did occasionally dropped to 88% on room air. He denies any chest pain. He was tachypneic. Patient stated that he became ?wore out ?while in the bathroom trying to change his diaper that he wears because of his prostate issues. He felt that his respiratory issues were because he was very fatigued from this process. Patient was also becoming more anxious about his situation. He was given another 1 mg of p.o. Ativan. He reported that the 0.5 mg that he received last evening had some affect but not when he expected. His respiratory status is definitely a change from last evening. Patient was sat up in bed. Will give him a chance to recover from walking to the bathroom and see if his tachypnea improved. It does not improve we will consider radiologic studies to evaluate him further. Patient with continued O2 sats in the high 80s. He was placed on oxygen by nasal cannula. Temperature was taken and patient was febrile. Also report from the provider's note from yesterday that the patient was also febrile yesterday. He did receive antibiotics. Repeat labs were drawn this morning. Repeat chest x-ray was ordered. Will re-evaluate after chest x-ray. Critical Care Time <Cem Richard, - Last Filed: 05/28/18 09:17> Critical Care Time: Yes Total Critical Care Time: 45 Attestation: The high probability of a clinically significant, sudden or life threatening deterioration of the [cardiovascular] system(s) required my full and direct attention, intervention and personal management. The aggregate critical care time was [45] minutes. This time is in addition to time spent performing reported procedures but includes the following: [x] Data Review and interpretation [x] Patient assessment and monitoring of vital signs [x] Documentation [x] Medication orders and management Discharge Plan Departure Patient Disposition: Admitted As Inpatient Clinical Impression: Metastatic cancer to liver, Metastatic bone cancer Discharge Date/Time: 05/28/18 12:32 Interventions: ED Discharge Assessment Last Done: 05/28/18 12:10 Admit Date/Time: 05/28/18 12:12 Admit Provider: Claudia Reyes
[2018-05-27 15:56] LABS: Lactate (Lactic Acid) 1.8 mmol/L (0.7-2.1)
[2018-05-27 15:58] LABS: Acetaminophen < 10 ug/mL (10-30); Alanine Aminotransferase 67 IU/L (21-72); Albumin 3.4 g/dL (3.5-5.0); Albumin Globulin Ratio 1.2 (1.0-2.8); Alkaline Phosphatase 488 U/L (38-126); Aspartate Aminotransferase 124 IU/L (17-59); BUN Creatinine Ratio 21.4 (6-22); Bilirubin Total 1.5 mg/dL (0.2-1.3); Bilirubin Unconjugated 0.8 mg/dL (0.0-1.1); Blood Urea Nitrogen 15 mg/dL (9-20); Calcium 9.8 mg/dL (8.4-10.2); Carbon Dioxide 34 mmol/L (22-32); Chloride 97 mmol/L (98-107); Estimated Glomerular Filt Rate > 60.0 mL/min (>60); Globulin 2.9 g/dL (1.7-4.1); Glucose 98 mg/dL (80-110); HEMOLYSIS < 15 (0-50); Lipase 35 U/L (23-300); Potassium 3.8 mmol/L (3.4-5.1); Sodium 138 mmol/L (137-145); Total Protein 6.3 g/dL (6.3-8.2)
[2018-05-27] MEDS: KETOROLAC 15 MG/ML VIAL IV (16:02)
[2018-05-27] MEDS: SODIUM CHLORIDE 0.9% 1,000 ML 1000 ML IV ×2 (16:02→17:30)
[2018-05-27] MEDS: CEFTRIAXONE 1 GM/50 ML FROZ.PIGGY IV (16:06)
[2018-05-27 16:15] LABS: Procalcitonin 0.34 ng/mL (<0.5)
--- NOTE | 2018-05-27 16:24 | DI.CT.S_ITS ---
PROCEDURE: CT CHEST ABD PEL W CON INDICATIONS: severe abdominal pain, fever, high suspicion of CA TECHNIQUE: After the administration of oral and intravenous contrast, 5 mm thick sections acquired from the lung apices to the symphysis. 5 mm coronal and sagittal reformats were performed, with additional 7 mm coronal MIP reformats through the lungs. For radiation dose reduction, the following was used: automated exposure control, adjustment of mA and/or kV according to patient size. COMPARISON: [facility], US, US ABDOMEN COMPLETE, 05/27/2018, 16:18. FINDINGS: Image quality: Excellent. CHEST: Lungs and pleura: There is mild dependent atelectasis bilaterally. Mild subpleural scarring is also demonstrated medially in the right lower lobe. No discrete nodules or mass lesions. No pleural effusions or pneumothorax. Central and peripheral airways appear patent and normal in caliber. Mediastinum: Heart size is normal. No pericardial effusion. There is aneurysmal dilatation of the ascending thoracic aorta which measures up to 5.3 cm. The aortic arch and descending aorta are normal in caliber. No mediastinal or hilar adenopathy by size criteria. Esophagus is normal in caliber. No hiatal hernia. There is an enlarged paraesophageal lymph node at the gastroesophageal junction measuring up to 2.0 cm. Chest wall: No axillary or supraclavicular adenopathy by size criteria. Thyroid gland demonstrates mild heterogeneity of the right lobe. ABDOMEN: Solid organs: Multiple hypoattenuating masses are demonstrated throughout the liver involving all lobes. A parts counter representative mass in the lateral right lobe measures approximately 9.8 x 8.1 cm in transverse dimension, parts counter representative mass anteriorly in the left hepatic lobe measures up to 12.8 x 8.5 cm. Biliary system is non dilated. Pancreas enhances normally. The spleen is enlarged, measuring up to 13.8 cm in dimension. No adrenal nodules. Kidneys demonstrate no hydronephrosis. There are bilateral nonobstructing renal stones, with a small stone in the right kidney measuring up to 4 mm in the inferior pole and 3 stones in the left kidney measuring up to 7 mm in the inferior pole. Peritoneum and bowel: Bowel loops demonstrate normal wall thickness and caliber. There is a small amount of free fluid in the pelvis. No free air. Nodes and vessels: As noted above, there is an enlarged paraesophageal lymph node. In addition, there is also an enlarged nelda hepatis lymph node measuring up to 2.1 cm. Aorta and inferior vena cava are normal in size. Miscellaneous: No ventral hernias. PELVIS: Genitourinary: Bladder wall thickness is normal. Miscellaneous: No inguinal hernias or adenopathy. Bones: There are numerous lytic bone lesions the visualized osseous structures including in the spine, sternum, likely scapula, bony pelvis, and proximal femurs including the left femoral neck. There is associated superior endplate scalloping of the L3 vertebral body. IMPRESSION: 1. Multiple hepatic masses lesions most likely representing metastatic disease. The differential includes primary hepatic neoplasms although this is less likely in the absence of cirrhosis. 2. Enlarged paraesophageal and nelda hepatis lymph nodes compatible with metastatic disease. 3. Numerous lytic lesions throughout the visualized osseous structures likely representing metastatic disease. This includes a lesion in the left femoral neck. Patient may be a risk for pathologic fracture. 4. Nonspecific splenomegaly. 5. Small amount of nonspecific free fluid in the pelvis. 6. Aneurysmal dilatation of the ascending thoracic aorta. Findings discussed with Dr. Richard on 05/27/18 at 5:15 PM. Dictated by: Melquiades Cuadra M.D. on 05/27/2018 at 17:00 Approved by: Melquiades Cuadra M.D. on 05/27/2018 at 17:17
[2018-05-27 16:54] LABS: Lactate Dehydrogenase 8712 U/L (313-618)
--- NOTE | 2018-05-27 18:43 | PC.NURSE ---
pt taking PO fluids at this time. Dr arechiga on phone with oncology regarding follow up care
--- NOTE | 2018-05-27 21:11 | PC.NURSE ---
Per [facility], will call back at 2200 to check on bed status. If no bed available pt will go to acute care rm 229 until able to transfer. Needs met at this time. given warm blanket and vitals rechecked. lights off and pt resting in bed, call light encouraged.
--- NOTE | 2018-05-27 22:33 | PC.NURSE ---
Evan called reporting still no beds for pt to transfer to. Per Dr Palmer, wait another hour and see what evan bed status is, if no beds, pt admitted upstairs. Pt in room lying asleep. Call tonny given. NAD
--- NOTE | 2018-05-27 23:06 | PC.NURSE ---
Pt provided with turkey sandwich and water and applejuice. sitting up in bed eating. NAD.
[2018-05-28] VITALS (14 sets, daily range): BP systolic 125–156; BP diastolic 52–89; PULSE 70–108; RESP 16–28; TEMP 36.9–39.4; O2SAT 88–97; BMI 25.5
--- NOTE | 2018-05-28 01:17 | PC.NURSE ---
Pt OOB to bathroom. staying overnight in department. PATTERN ST[employer]PER placed call to housekeeping to bring a hospital bed down to department for comfort. pt given more apple juice. requesting med to sleep, ativan ordered PO, given. Pt content at this time.
[2018-05-28] MEDS: LORazepam 0.5 MG TABLET PO (01:19)
--- NOTE | 2018-05-28 01:39 | PC.NURSE ---
Pt alert, oriented, denies new pain or discomfort, requesting limited interruption for sleep, placed in inpatient bed, using call light appropriately
--- NOTE | 2018-05-28 04:17 | PC.NURSE ---
1618 pt up to br ind, denies change in sx
[2018-05-28] MEDS: ONDANSETRON 4 MG/2 ML INJ IV (06:02)
--- NOTE | 2018-05-28 06:15 | PC.NURSE ---
0600 pt up to br, requesting medication for nausea. upon return, pt appears SOA, spo2 89% on RA, denies marc/md Estela singh notified
[2018-05-28] MEDS: LORazepam 1 MG TABLET PO (06:21)
--- NOTE | 2018-05-28 06:40 | PC.NURSE ---
placed on 2l o2 nc per md order, spo2 increased to 93%
--- NOTE | 2018-05-28 06:40 | DI.RAD.S_ITS ---
PROCEDURE: XR CHEST 1V INDICATIONS: Shortness of breath and fever TECHNIQUE: One view of the chest was acquired. COMPARISON: None. FINDINGS: Surgical changes and devices: None. Lungs and pleura: No pleural effusions or pneumothorax. Lungs are clear. Mediastinum: Mediastinal contours appear normal. Moderate elevation right hemidiaphragm with compressive atelectasis. There is some crowding of pulmonary vessels in the left retrocardiac region, compatible with atelectasis. Heart size is normal. Aortic calcifications and tortuosity. Bones and chest wall: No suspicious bony lesions. Thoracic spondylosis. Overlying soft tissues appear unremarkable. IMPRESSION: Bibasilar atelectasis. Atherosclerosis. Dictated by: Dallin Plunkett M.D. on 05/28/2018 at 7:54 Approved by: Dallin Plunkett M.D. on 05/28/2018 at 7:56
[2018-05-28] MEDS: SODIUM CHLORIDE 0.9% 1,000 ML 100 ML IV (06:41)
[2018-05-28] MEDS: IBUPROFEN 400 MG TABLET 800 MG PO (06:41)
[2018-05-28 06:54] LABS: Add Manual Diff / Slide Review NO; Basophils Percent Auto 0.7 % (0-2); Hematocrit 30.3 % (41-53); Hemoglobin 10.2 g/dL (13.5-17.5); Lymphocytes Percent Auto 6.3 % (25-40); Mean Corpuscular HGB Conc 33.7 % (30-36); Mean Corpuscular Hemoglobin 29.1 PG (26-34); Mean Corpuscular Volume 86.4 fL (80-100); Monocytes Percent Auto 7.2 % (3-14); Neutrophils Absolute Auto 6900 /uL (3000-5900); Neutrophils Percent Auto 85.8 % (50-75); Platelet Count 251 X10^3/uL (150-400); Red Blood Cell Count 3.51 X10^6/uL (4.5-5.9); White Blood Cell Count 8.1 X10^3/uL (4.5-11.0)
[2018-05-28 07:03] LABS: Blood Urea Nitrogen 14 mg/dL (9-20); Calcium 8.7 mg/dL (8.4-10.2); Carbon Dioxide 29 mmol/L (22-32); Chloride 98 mmol/L (98-107); Estimated Glomerular Filt Rate > 60.0 mL/min (>60); Glucose 108 mg/dL (80-110); HEMOLYSIS < 15 (0-50); Lactate (Lactic Acid) 1.1 mmol/L (0.7-2.1); Potassium 3.4 mmol/L (3.4-5.1); Sodium 133 mmol/L (137-145)
--- NOTE | 2018-05-28 07:58 | PC.NURSE ---
Given ibu for fever. PT is found with diaphoresis from fever. T 100.0
[2018-05-28] MEDS: SODIUM CHLORIDE 0.9% 1,000 ML 1000 ML IV (09:19)
--- NOTE | 2018-05-28 10:20 | PC.NURSE ---
Pt extremely sweaty from fever. States improvement after amb to br. started 2nd IV as AC line occluded and not functional.
--- NOTE | 2018-05-28 14:49 | PC.NURSE ---
Admit Note Admitted to rm 101 from ER at 1300. Ambulated from stretcher to room - steady on feet, SBA. Alert and oriented x3. RA with oxygen sats 95-96%. Oriented to room and to bed/tv/call light controls. Meds sent to pharmacy.
--- NOTE | 2018-05-28 17:27 | P.HP_ITS ---
History of Present Illness Date Patient Seen: 05/28/18 Time Patient Seen: 17:00 Chief complaint: achy all over,vomiting, sent by [place] Narrative: 72-year-old man who had history of malignant melanoma on the left arm that was diagnosed about 15 years ago. He had surgical resection back then. He also was diagnosed with prostate cancer in January of 2018 and had prostatectomy. His recent PSA was 0.01. He started having abdominal distention and abdominal discomfort for several months. In the past couple weeks the mild abdominal discomfort has gotten worse. He also has pain in his chest, hip, and legs. He went to see his primary care provider, Dr. Quinones and was told to come to the [facility] Emergency Room. CT of chest, abdomen at the emergency room revealed multiple metastatic lesions in the liver and spleen. He was admitted to the medicine floor for further evaluation and management of likely metastatic cancer. He has noticed fever on and off for the past couple weeks. He denies dysuria. No cough. Patient History Medical History Prostate CA (Acute) Surgical History H/O prostatectomy (Acute) Comment: Melanoma in the left arm, status post local resection and lymph node biopsy about 15 years ago at [facility] Prostate cancer diagnosed on January 21, 2018, status post prostatectomy Status post cholecystectomy Family & Social History Social History: household members spouse Prior Living Arrangements House Safety & Behavioral: Feels Safe in Current Yes Environment Been Physically Hurt or No Threatened By a Person Suicidal Ideation Description None Tobacco & Substance use: Smoking Status Former smoker alcohol intake never Substance Use Type does not use Comment: He is . He lives with his . Denies alcohol drinking or cigarette smoking. Meds Home Medications Medication Instructions Recorded Confirmed Type acetaminophen [Tylenol] 1 dose PO PRN PRN 05/27/18 05/27/18 History hydrocodone-acetaminophen 1 tab PO Q6H PRN MDD 8 05/27/18 05/27/18 History ibuprofen 1 dose PO PRN PRN 05/27/18 05/27/18 History ondansetron 4 mg PO Q8H PRN 05/27/18 05/27/18 History Allergies Allergy/AdvReac Type Severity Reaction Status Date / Time No Known Drug Allergies Allergy Verified 05/27/18 15:32 Review of Systems Constitutional Comments: He has been having fever on and off in the past few weeks. Cardiovascular Comments: No chest pain Respiratory Comments: Denies cough Gastrointestinal Gastrointestinal: Reports as per HPI Genitourinary Comments: No dysuria Exam Vital Signs (past 8 hours): - 05/28/18 10:08 05/28/18 11:06 05/28/18 11:49 Temperature Pulse Rate 88 73 92 H Respiratory Rate 18 16 18 Blood Pressure Blood Pressure [Left Arm] 141/60 H 128/56 H 125/52 H Pulse Oximetry 97 97 96 05/28/18 12:36 05/28/18 15:48 Temperature 98.5 F 100.1 F H Pulse Rate 70 72 Respiratory Rate 16 16 Blood Pressure 136/66 H 156/69 H Blood Pressure [Left Arm] Pulse Oximetry 95 95 Oxygen Delivery Method Nasal Cannula Oxygen Flow Rate 0 Narrative Exam Narrative: GENERAL: Middle-aged man in no acute distress. HEENT: Head normocephalic, atraumatic. Eyes pupils equal round NECK: Supple, no JVD, CHEST: Breath sounds equal bilaterally, no wheezes rales or rhonchi. CARDIAC: Regular rate and rhythm without murmurs, rubs or gallops. ABDOMEN: Soft, distended, positive ascites. Normoactive bowel sounds all 4 quadrants. Significant enlargement of liver and spleen. The liver was about 15 cm below the costal margin and the spleen was about 10 cm below the costal margin. Both the liver and spleen were tender to touch. No guarding or rebound. EXTREMITIES: Normal range of motion, no clubbing or edema. NEUROLOGICAL: Alert and oriented; Normal muscle strength. SKIN: Warm, dry, no petechiae, no rashes or lesions. Objective Imaging CT scan - abdomen: Radiologist's impression: 1. Multiple hepatic masses lesions most likely representing metastatic disease. The differential includes primary hepatic neoplasms although this is less likely in the absence of cirrhosis. 2. Enlarged paraesophageal and nelda hepatis lymph nodes compatible with metastatic disease. 3. Numerous lytic lesions throughout the visualized osseous structures likely representing metastatic disease. This includes a lesion in the left femoral neck. Patient may be a risk for pathologic fracture. 4. Nonspecific splenomegaly. 5. Small amount of nonspecific free fluid in the pelvis. 6. Aneurysmal dilatation of the ascending thoracic aorta. Labs Result Diagrams: 05/28/18 06:40 05/28/18 06:40 Labs: Laboratory Results - last 24 hr 05/28/18 05/28/18 05/28/18 06:40 06:40 06:40 WBC 8.1 RBC 3.51 L Hgb 10.2 L Hct 30.3 L MCV 86.4 MCH 29.1 MCHC 33.7 RDW 15.0 H Plt Count 251 Neut % (Auto) 85.8 H Lymph % (Auto) 6.3 L [place] % (Auto) 7.2 Eos % (Auto) 0.0 L Baso % (Auto) 0.7 Neut # (Auto) 6900 H Sodium 133 L Potassium 3.4 Chloride 98 Carbon Dioxide 29 BUN 14 Creatinine 0.50 L Estimated GFR > 60.0 BUN/Creatinine Ratio 28.0 H Glucose 108 Lactate 1.1 Calcium 8.7 Nasal Screen MRSA (PCR) 05/28/18 14:12 WBC RBC Hgb Hct MCV MCH MCHC RDW Plt Count Neut % (Auto) Lymph % (Auto) [place] % (Auto) Eos % (Auto) Baso % (Auto) Neut # (Auto) Sodium Potassium Chloride Carbon Dioxide BUN Creatinine Estimated GFR BUN/Creatinine Ratio Glucose Lactate Calcium Nasal Screen MRSA (PCR) Negative for mrsa Assessment & Plan Plan: Assessment/Plan Narrative: 1. Stage IV metastatic cancer.: I have talked to with Interventional Radiology. We are planning to do a CT-guided biopsy in the morning. We will check his coags. Recheck CBC and chemistry panel in the morning. Start oxycodone 10 mg every 4 hr orally as needed for pain control. Use morphine 8 mg IV as needed for severe pain. I have also left a message with the Oncology answering service requesting inpatient consultation in the morning. 2. Fever: Unknown etiology. Possibly secondary to the malignancy. No obvious source of infection was found. Chest x-ray did not reveal infiltrates. We will check urinalysis with reflex urine culture to rule out UTI. He did receive 1 dose of IV ceftriaxone from the ER yesterday. Blood culture was drawn from the ER. We will follow the blood culture result.
[2018-05-28] MEDS: OXYCODONE IR 10 MG TABLET PO ×2 (17:42→22:27)
[2018-05-28 17:48] LABS: INR 1.3 (0.9-1.3); Prothrombin Time 14.6 SECONDS (10.1-12.7)
[2018-05-28 18:34] LABS: Bacteria Urine None Seen
[2018-05-28 18:35] LABS: Appearance Urine UA CLEAR; Bilirubin Urine UA NEGATIVE (NEGATIVE); Color Urine UA YELLOW; Glucose Urine UA NEGATIVE (Normal); Ketones Urine UA NEGATIVE (NEGATIVE); Leukocyte Esterase Urine UA NEGATIVE (NEGATIVE); Nitrite Urine UA Negative (Negative); Occult Blood Urine UA NEGATIVE (Negative); Protein Urine UA 1+ (Negative); Specific Gravity Urine UA 1.025 (1.000-1.035); pH Urine UA 5.5 (4.5-8.0)
--- NOTE | 2018-05-28 18:38 | PC.NURSE ---
Addendum entered by Gissell Winslow R.N. 05/28/18 23:37: [id number] - Dr. Reyes pageerickson a second time. Awaiting return call. Original Note: Addendum entered by Gissell Winslow R.N. 05/28/18 22:33: Pt awake, able to void per urinal. Appears diaphoretic. Vitals check. temp 104 temporal, 103.0 Oral. Tachycardic 108, [place] removed. Sats 88% on RA, placed on 2L NC 93%. Pt c/o RLQ and generalized pain, Per[place] given. Dr. Reyes paged. Original Note: Pt resting in bed. C/O pain to RLQ and aching everywhere. Educated to pain medication, availability and dose times. Pt able to void per urinal, UA sent, Denies need for brief change. Mild SOB with activity. Denies nausea. Call light in reach.
[2018-05-28 18:46] LABS: RBC Urine 0-1/HPF (0-5/HPF); WBC Urine 0-1/HPF (0-5/HPF)
[2018-05-28] MEDS: DOCUSATE 100 MG CAPSULE PO (22:28)
[2018-05-29] VITALS (15 sets, daily range): BP systolic 139–162; BP diastolic 55–86; PULSE 82–96; RESP 16–22; TEMP 36.9–38.3; O2SAT 92–96
--- NOTE | 2018-05-29 | DI.CT.S_ITS ---
PROCEDURE: CT BIOPSY LIVER Sedation analgesia for 15 minutes. INDICATIONS: biopsy LIVER LIVER MARTIN TECHNIQUE: The indications, alternatives, benefits, risks, and possible complications of the procedure were communicated to the patient. Informed written consent from the patient was obtained and placed in the chart. Continuous EKG and hemodynamic monitoring was started by trained personnel. The patient was brought to the CT suite and sales contractor spiral CT imaging was performed with localization grid. The appropriate site for percutaneous access to the biopsy target was marked, was prepped and draped sterilely, and was infused with local anaesthesia. Under CT guidance, a core biopsy trocar and needle set was advanced to the biopsy target, and specimen(s) were obtained. The trocar and needle were then removed, and the patient was sent for post-procedure monitoring. COMPARISON: [facility], CT, CT CHEST ABD PEL W CON, 05/27/2018, 16:28. FINDINGS: Biopsy site: Intrahepatic mass inferior right lobe liver Needle: 20 gauge biopsy needle with introducer trocar. Number of passes: 4 Medications: 1% lidocaine for local anaesthesia. 50 mcg IV Fentanyl and 1 mg Versed for conscious sedation for 15 minutes (see nursing record). Complications: None. Post biopsy CT imaging negative for bleed IMPRESSION: Successful CT-guided biopsy of right lobe liver mass. Dictated by: Dallin Plunkett M.D. on 05/29/2018 at 13:38 Approved by: Dallin Plunkett M.D. on 05/29/2018 at 13:44
--- NOTE | 2018-05-29 | PATH_ITS ---
[facility] Accession Number: [id number] . 01 Material submitted: . LIVER . 01 Clinical history: . NEEDLE CORE BX X4 . 02 Diagnosis: Needle Core Biopsies, Liver: Metastatic malignant melanoma (see microscopic description). . Case reviewed by Dr. Zaida Rodriguez who agrees with thje diagnosis. MRV/06/05/2018 . 02 Electronically signed: . oBris Tatum MD, Pathologist NPI- [id number] . 01 Gross description: . Received one formalin-filled container, labeled with the patient's name and designated needle core BX x4 liver are four 0.1 cm in diameter, cylindrical shaped portions of tissue which range in length from 0.2-0.5 cm. The specimen is entirely submitted in one cassette. [place] [place] /MRV . 02 Microscopic: . Sections are of a needle core biopsy. The tissue cores are totally replaced by very undifferentiated appearing malignant neoplasm. The tumor cells are intermediate size with round, slightly irregular hyperchromatic nuclei and indistinct or absent nucleoli. Organoid differentiation is not noted. The cells are poorly cohesive. It is understood that the patient has a history of previous malignant melanoma. Definite pigment production is not noted within these tumor cells; however, immunohistochemistry is performed in order to better identify the cell type present here. . IMMUNOHISTOCHEMISTRY RESULTS: S100: Rare cell positive. HMB45: Uniformly positive. Melan-A: Negative. KRISSY: Negative. CD45: Negative. PSA: Negative. CD138: Negative. SOX10: Uniformly positive. . INTERPRETATION: This immunophenotype rules against any hematopoietic tumor and also against metastatic prostate cancer. The positive staining for SOX10 and HMB45 and a rare positive S100 protein stain is consistent with malignant melanoma. . 02 Pathologist provided ICD-10: C78.7 . 02 CPT . 121102, [id number], [id number] Performed at: 01 [facility] [address] [id number] MD Melquiades Colunga MD Phone: [phone] Performed at: 02 [facility] [address] [place], [place] [id number] MD Keaton Mckeon MD Phone: [phone]
[2018-05-29] MEDS: OXYCODONE IR 5 MG TABLET 10 MG PO ×4 (04:18→21:08)
[2018-05-29] MEDS: HYDROMORPHONE 2 MG INJ 1 MG IV (05:30)
--- NOTE | 2018-05-29 06:50 | PC.NURSE ---
NOC Shift: Pt with increasing ascites to abdomen w/tympanic BT's, complaining of increasing RLQ pain treated w/percodone and intermittent IVP Dilaudid. Has denied N/V is taking po milkshakes. Continues to have fever and requiring supplemental O2 due to resp. distress from ascites. SAO2 85% on RA. Otherwise VSS.
[2018-05-29] MEDS: DOCUSATE 100 MG CAPSULE PO ×2 (08:40→21:08)
--- NOTE | 2018-05-29 11:30 | P.PN_ITS ---
Subjective Date Patient Seen: 05/29/18 Time Patient Seen: 11:27 Interval history: still with pain Exam Vital Signs (past 8 hours): - 05/29/18 04:18 05/29/18 04:26 05/29/18 04:28 Temperature 100.9 F H 100.9 F H Pulse Rate 92 H Respiratory Rate 22 Blood Pressure 158/73 H Pulse Oximetry 93 93 05/29/18 05:41 05/29/18 06:23 05/29/18 09:43 Temperature 100.9 F H 100.4 F H 99 F Pulse Rate 95 H Respiratory Rate 18 Blood Pressure 150/86 H Pulse Oximetry 94 05/29/18 09:52 Temperature Pulse Rate Respiratory Rate Blood Pressure Pulse Oximetry 92 Oxygen Delivery Method Nasal Cannula Oxygen Flow Rate 2 Narrative Exam Narrative: He is resting comfortably Lungs are clear Heart regular rhythm Abdomen distended nontender Lower extremities trace edema Objective Labs Result Diagrams: 05/28/18 06:40 05/28/18 06:40 Labs: Laboratory Results - last 24 hr 05/28/18 05/28/18 05/28/18 14:12 17:16 17:30 PT 14.6 H INR 1.3 Urine Color Yellow Urine Appearance Clear Urine pH 5.5 Ur Specific [place] 1.025 Urine Protein 1+ H Urine Glucose (UA) Negative Urine Ketones Negative Urine Occult Blood Negative Urine Nitrate Negative Urine Bilirubin Negative Urine Urobilinogen 4.0 H Ur Leukocyte Esterase Negative Urine RBC 0-1/hpf Urine WBC 0-1/hpf Urine Bacteria None seen Ur Culture Indicated? Not Reportable Micro UA Comment Not Reportable Nasal Screen MRSA (PCR) Negative for mrsa Assessment & Plan Plan: Assessment/Plan Narrative: 1. Stage IV metastatic cancer.: Liver biopsy has been ordered. Hopefully this will be done today. INR was 1.3. Platelets normal. I think after the biopsy can probably be discharged home tomorrow and then follow up with Oncology as an outpatient 2. Fever: Unknown etiology. Possibly secondary to the malignancy. No obvious source of infection was found. Chest x-ray did not reveal infiltrates. We will check urinalysis with reflex urine culture to rule out UTI. He did receive 1 dose of IV ceftriaxone from the ER yesterday. Blood culture was drawn from the ER. We will follow the blood culture result.
[2018-05-29] MEDS: SODIUM CHLORIDE 0.9% 1,000 ML 84 ML IV (12:41)
[2018-05-29] MEDS: MIDAZOLAM 2 MG/2 ML VIAL 1 MG IV (12:44)
[2018-05-29] MEDS: fentaNYL 100 MCG/2 ML INJ 50 MCG IV (12:45)
--- NOTE | 2018-05-29 14:09 | PC.NURSE ---
Pt arrived back from CT at 1240 s/p liver biopsy. CDI Gauze dsg secured with tape noted to RUQ. VSS. Pt requiring 3L O2 for spo2 94%. Pt in side lying position for 1 hour to prevent bleeding to biopsy site. Presently denying pain. Per report, received 50 mcg fentanyl at procedure. Resting comfortably now. Call light and phone in reach. 1345- Called to Dr. Rayo. Clarified diet order and need for IVFs. Reported pt increasing O2 needs and that pt is not on O2 at baseline. Orders received to d/c IVFs if taking PO, regular diet, and RA ABG. Notified RT and placed pt on RA. RT to bedside to do ABG but called away to ED. Noted Spo2 84% on RA and replaced O2 at 3L NC for now. Pt requesting food. Set up tray with grilled cheese sandwhich and tomato soup per request. Pt denies needs at this time. Call light in reach.
[2018-05-29 15:55] LABS: Hematocrit 31.1 % (41-53); Hemoglobin 10.5 g/dL (13.5-17.5)
[2018-05-29 16:00] LABS: PCO2 ABG 33.5 mmHg (35-45); PO2 ABG 51 mmHg (80-105)
[2018-05-29 16:01] LABS: Fractionated Inspired Oxygen 0.21; HCO3 ABG 26 mmol/L (23-27); Oxygen Saturation ABG 89 % (95-100); TCO2 ABG 27 mmol/L (23-27)
--- NOTE | 2018-05-29 16:10 | CM.DANOTE ---
Discharge Planning/Care Management DCP: assessment: case received, EMR reviewed and met this afternoon with pt. Introduced self and role. PT is a 72 year old male who admitted yesterday afternoon to care of the hospitalist team. PCP: Dr. Quinones/Damaso Payer: [employer] Pt with new dx of stage IV cancer/metastatic. He confirms he expects to go home when stable and will consider his options for treament. He expresses appreciation for hospital care and for his who is working hard to hold together their B&B at the busiest time of year for them. 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 pt says his Buddy is aware of his dx and they have been speaking frequently by phone while Buddy tries to keep up with the business at home Transportation Arrangement pt plans to go home and follow as outpt with oncology for discussion of options for care He will need priority board ferry pass: STOCK WORKER can arrange Review Status In Process Next Review Type Continued Stay Review
[2018-05-29 16:56] LABS: Hepatitis A Antibody IgM NONREACTIVE; Hepatitis Acute Panel Interp 0.03; Hepatitis B Core Antibody IgM NONREACTIVE; Hepatitis B Surface Antigen NONREACTIVE; Hepatitis C Antibody NONREACTIVE
--- NOTE | 2018-05-29 19:21 | ONC.CONS ---
History of Present Illness - Data of Consult Consult date: 05/29/18 Requesting Physician: Melly Reyes MD Primary Care Provider: Mart Quinones MD - Consult Narrative Reason for consult: Metastatic malignancy, pathology pending Narrative: Bassam Ayon is a 72 year old very pleasant gentleman, from [facility]. He has a remote history of melanoma on left forearm and recent history of early stage prostate cancer, status post radical prostatectomy in bed in [place] in January 2018. Indicates he has not been feeling well for the last 2-3 months. He has been getting progressively weaker, malaise, achiness in legs, and progressive right upper quadrant pain. Has been feeling bloated and distended. Lately he has been constipated due opioid prescriptions, but otherwise denies change in bowel habits or bleeding. Last Saturday, he was feeling very poorly and referred to his PCP, Dr. Quinones in [facility]. He was advised to go to ER. CT chest abdomen and pelvis 05/27/2018 shows multiple bulky hypoattenuating masses throughout bilateral hepatic lobes. The largest is 12.8 x 8.5 cm anteriorly in the left hepatic lobe. The 2nd largest is 9.8 x 8.1 cm in the lateral right hepatic lobe. Biliary system is nondilated. Pancreas enhances normally. There is nonspecific splenomegaly, up to 13.8 cm. Kidneys appear normal with no hydronephrosis, and there are no adrenal nodules. There is no peritoneal carcinomatosis, and there is small amount of pelvic ascites. There is enlarged paraesophageal lymph node, and enlarged nelda hepatis lymph node up to 2.1 cm. The multiple lytic bone lesions throughout visualized skeleton, including spine sternum scapular pelvis and proximal femurs. A CT-guided biopsy of liver mass was obtained today, pathology pending. Labs show mild anemia, normal leukocyte count and normal platelet count, normal renal function, normal serum calcium, bilirubin 1.5, AST borderline elevated, alkaline phosphatase 488, LDH markedly elevated at 8700. Currently, he is emotionally in shock. Physically he does not feel good. He is somewhat clammy and appears weak. He has ongoing pain in right upper quadrant area. CC: Claudia Reyes MD - Pain Details Pain Intensity: 3 Pain Scale Used: Numeric (1 - 10) Home Medications and Allergies Home Medications Medication Instructions Recorded Confirmed Type acetaminophen [Tylenol] 1 dose PO PRN PRN 05/27/18 05/27/18 History hydrocodone-acetaminophen 1 tab PO Q6H PRN MDD 8 05/27/18 05/27/18 History ibuprofen 1 dose PO PRN PRN 05/27/18 05/27/18 History ondansetron 4 mg PO Q8H PRN 05/27/18 05/27/18 History Allergies Allergy/AdvReac Type Severity Reaction Status Date / Time No Known Drug Allergies Allergy Verified 05/27/18 15:32 Medical History - Medical, Surgical, Family History Medical History: Medical History (Last Updated 05/28/18 @ 19:46 by Gissell Winslow RN) Macular degeneration Prostate CA Surgical History: Surgical History (Last Updated 05/27/18 @ 15:53 by Cem Richard DO) H/O prostatectomy - Social History Smoking Status: Former smoker Exam Vital signs: Last Vital Signs Temp 98.9 F 05/29/18 16:34 Pulse 92 H 05/29/18 16:34 Resp 22 05/29/18 16:34 BP 159/72 H 05/29/18 16:34 Pulse Ox 94 05/29/18 16:34 Results - Labs 05/29/18 15:35 05/28/18 06:40 Laboratory Last Values WBC 8.1 X10^3/uL (4.5-11.0) 05/28/18 06:40 RBC 3.51 X10^6/uL (4.5-5.9) L 05/28/18 06:40 Hgb 10.5 g/dL (13.5-17.5) L 05/29/18 15:35 Hct 31.1 % (41-53) L 05/29/18 15:35 MCV 86.4 fL (80-100) 05/28/18 06:40 MCH 29.1 PG (26-34) 05/28/18 06:40 MCHC 33.7 % (30-36) 05/28/18 06:40 RDW 15.0 % (11.6-14.8) H 05/28/18 06:40 Plt Count 251 X10^3/uL (150-400) 05/28/18 06:40 Neut % (Auto) 85.8 % (50-75) H 05/28/18 06:40 Lymph % (Auto) 6.3 % (25-40) L 05/28/18 06:40 [place] % (Auto) 7.2 % (3-14) 05/28/18 06:40 Eos % (Auto) 0.0 % (2-4) L 05/28/18 06:40 Baso % (Auto) 0.7 % (0-2) 05/28/18 06:40 Neut # (Auto) 6900 /uL (7383-3687) H 05/28/18 06:40 PT 14.6 SECONDS (10.1-12.7) H 05/28/18 17:16 INR 1.3 (0.9-1.3) 05/28/18 17:16 ABG pH 7.50 (7.35-7.45) H 05/29/18 14:40 ABG pCO2 33.5 mmHg (35-45) L 05/29/18 14:40 ABG pO2 51 mmHg (80-105) L 05/29/18 14:40 ABG HCO3 26 mmol/L (23-27) 05/29/18 14:40 ABG Total CO2 27 mmol/L (23-27) 05/29/18 14:40 ABG O2 Saturation 89 % (95-100) L 05/29/18 14:40 ABG Base Excess 3.0 mmol/L (-2-3) 05/29/18 14:40 FiO2 0.21 05/29/18 14:40 Sodium 133 mmol/L (137-145) L 05/28/18 06:40 Potassium 3.4 mmol/L (3.4-5.1) 05/28/18 06:40 Chloride 98 mmol/L (98-107) 05/28/18 06:40 Carbon Dioxide 29 mmol/L (22-32) 05/28/18 06:40 BUN 14 mg/dL (9-20) 05/28/18 06:40 Creatinine 0.50 mg/dL (0.66-1.25) L 05/28/18 06:40 Estimated GFR > 60.0 mL/min (>60) 05/28/18 06:40 BUN/Creatinine Ratio 28.0 (6-22) H 05/28/18 06:40 Glucose 108 mg/dL (80-110) 05/28/18 06:40 Lactate 1.1 mmol/L (0.7-2.1) 05/28/18 06:40 Calcium 8.7 mg/dL (8.4-10.2) 05/28/18 06:40 Total Bilirubin 1.5 mg/dL (0.2-1.3) H 05/27/18 15:00 Conjugated Bilirubin 0.0 md/dL (0.0-0.3) 05/27/18 15:00 Unconjugated Bilirubin 0.8 mg/dL (0.0-1.1) 05/27/18 15:00 AST 124 IU/L (17-59) H 05/27/18 15:00 ALT 67 IU/L (21-72) 05/27/18 15:00 Alkaline Phosphatase 488 U/L (38-126) H 05/27/18 15:00 Lactate Dehydrogenase 8712 U/L (313-618) H 05/27/18 15:00 Total Protein 6.3 g/dL (6.3-8.2) 05/27/18 15:00 Albumin 3.4 g/dL (3.5-5.0) L 05/27/18 15:00 Globulin 2.9 g/dL (1.7-4.1) 05/27/18 15:00 Albumin/Globulin Ratio 1.2 (1.0-2.8) 05/27/18 15:00 Lipase 35 U/L (23-300) 05/27/18 15:00 Procalcitonin 0.34 ng/mL (<0.5) 05/27/18 15:00 Urine Color Yellow 05/28/18 17:30 Urine Appearance Clear 05/28/18 17:30 Urine pH 5.5 (4.5-8.0) 05/28/18 17:30 Ur Specific [place] 1.025 (1.000-1.035) 05/28/18 17:30 Urine Protein 1+ (Negative) H 05/28/18 17:30 Urine Glucose (UA) Negative g/dL (Normal) 05/28/18 17:30 Urine Ketones Negative (NEGATIVE) 05/28/18 17:30 Urine Occult Blood Negative (Negative) 05/28/18 17:30 Urine Nitrate Negative (Negative) 05/28/18 17:30 Urine Bilirubin Negative (NEGATIVE) 05/28/18 17:30 Urine Urobilinogen 4.0 E.U./dL (0.2) H 05/28/18 17:30 Ur Leukocyte Esterase Negative (NEGATIVE) 05/28/18 17:30 Urine RBC 0-1/hpf (0-5/HPF) 05/28/18 17:30 Urine WBC 0-1/hpf (0-5/HPF) 05/28/18 17:30 Urine Bacteria None seen (None) 05/28/18 17:30 Ur Culture Indicated? Not Reportable 05/28/18 17:30 Micro UA Comment Not Reportable 05/28/18 17:30 Nasal Screen MRSA (PCR) Negative for mrsa (Negative) 05/28/18 14:12 Acetaminophen < 10 ug/mL (10-30) L 05/27/18 15:00 Hepatitis A IgM Ab Nonreactive 05/27/18 15:00 Hep Bs Antigen Nonreactive 05/27/18 15:00 Hep B Core IgM Ab Nonreactive 05/27/18 15:00 Hepatitis C Antibody Nonreactive 05/27/18 15:00 Hep C Ab Signal/Cutoff 0.03 05/27/18 15:00 - Imaging Additional studies: Procedures Endoscopic destruction of other lesion or tissue of large intestine (02/16/13) Assessment and Plan (1) Metastatic cancer to liver Current visit: Yes Status: Acute 9-year-old gentleman with remote history of early stage melanoma involving left forearm and recent history of early stage prostate cancer, status post robotic radical prostatectomy January 2018, presenting with multiple bulky liver metastases, numerous bone metastases, small degree of metastatic adenopathy, unknown primary. No bowel symptoms, and colonoscopy was normal 5 years ago. Biopsy was obtained today. I will follow up on some resolved and I will see this gentleman at [facility] as outpatient on 06/05/2018. There is no further inpatient intervention indicated other than optimizing his pain regimen and bowel regimen. Thank you for consultation. 05/29/18 19:31
--- NOTE | 2018-05-29 21:42 | PC.NURSE ---
Addendum entered by Gissell Winslow R.N. 05/29/18 22:22: Dressing to biopsy site. RLQ CDI. Abd distended, tender. Denies nausea. Original Note: Pt reports feeling some relief of anxiety following visit with MD from Oncology. States that a follow up appointment has been scheduled for Saturday. Pt is using his I.S. independently. Reinforced pulmonary hygene. Pt reports pain 06/13. PO meds given. Stood at bedside to void. Brief changed. Set up for self oral care. Positioned for comfort. Call light in reach.
[2018-05-30 00:54] VITALS: BP 156/80; PULSE 94; RESP 16; TEMP 36.8; O2SAT 95
[2018-05-30] MEDS: HYDROMORPHONE 2 MG INJ 1 MG IV ×4 (00:54→14:53)
[2018-05-30 01:03] VITALS: O2SAT 92
[2018-05-30] MEDS: OXYCODONE IR 5 MG TABLET 10 MG PO ×2 (02:45→06:54)
[2018-05-30 05:12] VITALS: BP 146/80; PULSE 87; RESP 16; TEMP 36.9; O2SAT 95
[2018-05-30] MEDS: SODIUM CHLORIDE 0.9% FLUSH 10 ML IV ×2 (05:15→09:13)
--- NOTE | 2018-05-30 06:17 | PC.NURSE ---
I can't sleep, I just lay here and think, pt vervalizes concerns and fears, unable to breath normal breaths due to pain from abdomen. Medicated for pain and rest with some relief.
[2018-05-30 07:58] VITALS: BP 145/68; PULSE 88; RESP 16; TEMP 36.6; O2SAT 95
[2018-05-30 08:28] VITALS: O2SAT 94
[2018-05-30] MEDS: DOCUSATE 100 MG CAPSULE PO (09:18)
--- NOTE | 2018-05-30 10:27 | PM.DS.1 ---
History of Present Illness Date Patient Seen: 05/30/18 Time Patient Seen: 10:27 Chief complaint: achy all over,vomiting, sent by [place] Narrative: Narrative: 72-year-old man who had history of malignant melanoma on the left arm that was diagnosed about 15 years ago. He had surgical resection back then. He also was diagnosed with prostate cancer in January of 2018 and had prostatectomy. His recent PSA was 0.01. He started having abdominal distention and abdominal discomfort for several months. In the past couple weeks the mild abdominal discomfort has gotten worse. He also has pain in his chest, hip, and legs. He went to see his primary care provider, Dr. Quinones and was told to come to the [facility] Emergency Room. CT of chest, abdomen at the emergency room revealed multiple metastatic lesions in the liver and spleen. He was admitted to the medicine floor for further evaluation and management of likely metastatic cancer. He has noticed fever on and off for the past couple weeks. He denies dysuria. No cough. Discharge Providers Date of admission: 05/28/18 12:12 Primary care physician: Mart Quinones MD Consults: 05/30/18 10:21 Consult to Respiratory Therapy Evaluate & Treat Comment: Physician Instructions: evalutate for need for home oxygen. Discharge provider: Yeyo Rayo MD Summary Discharge Diagnosis: One. Stage IV metastatic cancer primary under investigation 2. Fever secondary to malignancy Hospital Course: Patient presented with symptoms of abdominal pain and weakness. CT scan of the abdomen showed old multiple bulky masses throughout bilateral hepatic lobes with nonspecific splenomegaly small amount of pelvic ascites and enlarged paraesophageal lymph nodes and enlarged nelda hepatis lymph nodes. Also had multiple lytic bone lesions throughout the skeleton.. Patient has CT-guided liver biopsy he is pain was controlled with IV pain medications. At this point we are waiting for the biopsy results will be discharged home on oral oxycodone. Oncology saw him initially in the hospital but will follow up with him next week when the biopsy results are available and outline a possible palliative treatment program. Status at Discharge Functional status at discharge: independent ambulation Overall status at discharge: patient is not back to baseline Time Spent with Patient Greater than 30 minutes Exam Vital Signs (past 8 hours): - 05/30/18 05:12 05/30/18 07:58 05/30/18 08:28 Temperature 98.5 F 97.8 F Pulse Rate 87 88 Respiratory Rate 16 16 Blood Pressure 146/80 H 145/68 H Pulse Oximetry 95 95 94 Oxygen Delivery Method Nasal Cannula Oxygen Flow Rate 3 Objective Labs Result Diagrams: 05/29/18 15:35 05/28/18 06:40 Labs: Laboratory Results - last 24 hr 05/27/18 05/29/18 05/29/18 15:00 14:40 15:35 Hgb 10.5 L Hct 31.1 L ABG pH 7.50 H ABG pCO2 33.5 L ABG pO2 51 L ABG HCO3 26 ABG Total CO2 27 ABG O2 Saturation 89 L ABG Base Excess 3.0 FiO2 0.21 Hepatitis A IgM Ab Nonreactive Hep Bs Antigen Nonreactive Hep B Core IgM Ab Nonreactive Hepatitis C Antibody Nonreactive Hep C Ab Signal/Cutoff 0.03 Discharge Plan Discharge Plan Patient Disposition: Home, Self-Care Provider Discharge Instructions Diet: Diet as Tolerated Discharge Data Primary Care Provider: Mart Quinones Attending Provider: Claudia Reyes Admit Date/Time: 05/28/18 12:12
[2018-05-30 11:00] VITALS: BP 133/62; PULSE 96; RESP 16; TEMP 37.1; O2SAT 95
--- NOTE | 2018-05-30 14:15 | PT.IIE ---
Current Diagnoses Malignant neoplasm of prostate (05/28/18) Surgical History (Last Updated 05/27/18 @ 15:53 by Cem Richard DO) H/O prostatectomy (Acute) Medical History (Last Updated 05/28/18 @ 19:46 by Gissell Winslow RN) Macular degeneration (Acute) Prostate CA (Acute) Physical Therapy Inpatient Evaluation/Re-Eval M1 PT/OT-IP Prior Functional Status Start: 05/30/18 14:48 Freq: NEEDED Status: Active Protocol: Document 05/30/18 14:15 AB (Rec: 05/30/18 14:58 AB [id number]) Medical Review Prior Functional Status Medical History Reviewed Yes Communication able to make needs known Mobility and Gait modified independent with all mobilities and ambulation without AD Social History Household Members spouse Living Arrangements House Number of Floors (Floors) Two Floors Number of Stairs To Enter/Railing? 1 step to enter; has one flight of steps to get to 2nd floor bedroom with bilateral rails Home Environment Standard Height Toilet Walk in Shower M2 PT-IP Current Condition Start: 05/30/18 14:48 Freq: NEEDED Status: Active Protocol: Document 05/30/18 14:15 AB (Rec: 05/30/18 14:58 AB [id number]) Physical Therapy Current Condition Current Condition Evaluation Date 05/30/18 Treatment Diagnosis metastatic cancer to liver; metastatic bone cancer; gen. weakness Onset Date 05/28/18 M3 PT-IP Subjective Start: 05/30/18 14:48 Freq: NEEDED Status: Active Protocol: Document 05/30/18 14:15 AB (Rec: 05/30/18 14:58 AB [id number]) Subjective Physical Therapy Visit Type Type Initial Evaluation Visit Start Time 14:15 Visit Stop Time 14:40 Total Visit Minutes 25 Number of GRINDER OUTSIDE DIAMETER Visits 0 Physical Therapy Visit Comments Patient Comments pt agreeable to do therapy Therapy Pain Assessment Pain Present Pain Present Denied Pain M4 PT-IP Mobility and Gait Start: 05/30/18 14:48 Freq: NEEDED Status: Active Protocol: Document 05/30/18 14:15 AB (Rec: 05/30/18 14:58 AB [id number]) PT-Transfer Assessment Sit to and From Stand Sit to and from Stand Standby Assistance Gait Assessment Gait Gait Assistance Required: Standby Assistance Distance (Feet) (feet) 60 Able to Maintain Weight Bearing Status Yes During Gait Assistive Devices Assistive Device None Orthotic/Prosthetic Devices or Brace: No Factors Limiting Gait Function Factors Limiting Gait Function Decreased Activity Tolerance Decreased Strength Stair Climbing Assessment Evaluation Level of Assist On Stairs Standby Assistance Devices Stair Climbing Assistive Devices None Right Railing Technique/Endurance Stair Climbing Direction Ascend and Descend Stair Climbing Technique Step to Step Comments Stair Climbing Comments completed up/down step without rails SBA; also completed using R rail ascending SBA PT-Balance Assessment Standing Balance and Reactions Static Standing Balance Ability Good Dynamic Standing Balance Ability Fair Device Used none M5 PT-IP Objective Assessments Start: 05/30/18 14:48 Freq: NEEDED Status: Active Protocol: Document 05/30/18 14:15 AB (Rec: 05/30/18 14:58 AB [id number]) Orientation Orientation/Cognition Level of Alertness Alert Orientation Name Age Birthday Month Date Year Day of Week Place Situation Safety Awareness Understands Safety Issues Gross Range of Motion Lower Extremity ROM Assessment Within Functional Limits Strength Lower Extremity Strength Assessment Within Functional Limits M6 PT-IP Treatment Start: 05/30/18 14:48 Freq: NEEDED Status: Active Protocol: Document 05/30/18 14:15 AB (Rec: 05/30/18 14:58 AB [id number]) Physical Therapy Treatment Education Education Provided Safety M7 PT-IP Assessment and Plan Start: 05/30/18 14:48 Freq: NEEDED Status: Active Protocol: Document 05/30/18 14:15 AB (Rec: 05/30/18 14:58 AB [id number]) PT Summary Assessment and Plan Potential Rehabilitation Potential Fair Status of Condition at Evaluation Evolving Summary Impairments Strength Balance Transfers Gait Activity Tolerance Assessment Summary pt requiring one person SBA with mobility. presents with decrease activity tolerance. pt plans to go home with spouse to assist him and may go home when medically stable. pt using O2 at this time and was able to maintain O2 sat 94 -96% with 2L/min O2 with activity. Goals Bed Mobility Goal Independent Transfer Goal Independent Gait Goal Independent Gait Distance 100 Other Goals up/down 12 steps using 1 rail Mod I Frequency of Treatment Frequency Of Treatment Once a Day Treatment Plan Physical Therapy Treatment Plan Bed Mobility Training Transfer Training Gait Training Therapeutic Exercise Discharge Planning Neuromuscular Re-ed Recommendations To Nursing Amount of Assist Needed Standby Assistance Discharge Recommendations PT Discharge Recommendations Home with Assistance
[2018-05-30] MEDS: OXYCODONE IR 5 MG TABLET 15 MG PO (14:53)
--- NOTE | 2018-05-30 14:59 | CM.DPC ---
DCP: continued: checked in with pt this morning after seeing a d/c order from Dr. Rayo. Conferred with RICHY Rizo who noted that pt really had not been up. Pt confirmed I think I can walk but I feel really weak. PT order obtained and therapy dept notified. Received a call from pt's friend Oscar [phone] who is cooridinating the d/c/transport process. He has another friend of pt's picking him up at the hospital today with plans to be on the 1530 ferry back to [place] ([employer] Sallie confirms she is setting his up). He did call later and to report the ferry was running about 80 minutes late. Home 02 is needed and RT has been setting his up for pt. Oncology consult was completed yesterday and pt will see Dr. Eugene at [facility] in [place] on 06/05. Pt is ill, weak and in pain but does confirm he very much wants to go home today. P: at this point: home on ferry this afternoon. No PT notes are available but therapy staff confirm PT Cheri is seeing pt.
== END 2018-05-30 15:46 | disposition home or self-care (01) | DRG 435 ==
LOC: ED 05-28 08:51 → ICU 05-28 12:13
PROVIDERS: Emergency Medicine; Internal Medicine; Specialist; Admitting Provider Internal Medicine; Emergency Provider Emergency Medicine; Family Provider Family Medicine; PCP Family Medicine; Visit Provider Internal Medicine
DX: C78.7 Secondary malignant neoplasm of liver and intrahepatic bile duct (principal); J96.01 Acute respiratory failure with hypoxia; C79.51 Secondary malignant neoplasm of bone; R50.9 Fever, unspecified; Z85.46 Personal history of malignant neoplasm of prostate; Z85.820 Personal history of malignant melanoma of skin; Z87.891 Personal history of nicotine dependence
CPT/HCPCS: 36415; 36591; 36600; 47000; 71045; 71260; 74177; 76700; 77012; 80048; 80053; 80074; 80076; 80329; 81001; 81003; 82805; 83605; 83615; 83690; 84145; 85014; 85018; 85025; 85610; 87040; 87797; 96361; 96365; 96375; 97162; 99285; G0480; J1170; J1885; J2250; J2405; J3010; Q9967